=== PATIENT | female | born 1945 | race African-American/Black ===

== ENCOUNTER 2017-02-01 14:22 | Emergency (ER) | payer MEDICARE, MEDICAID ==
[~2017-02-01] VITALS: Ht 162.6 cm; Wt 94.0 kg
[~2017-02-01 14:22] MED LIST: AMLO2.5T45 PO; ASPI-1236 PO
[2017-02-01 16:09] LABS: EOSINOPHILS % 1.2 % (0.0-5.0); HEMATOCRIT. 41.9 % (36.0-48.0); HEMOGLOBIN. 13.7 g/dL (12.0-16.0); LYMPHOCYTES % 29.5 % (20.0-50.0); MEAN CORPUSCULAR HEMOGLOBIN 26.2 pg (28.0-32.0); MEAN CORPUSCULAR VOLUME 80.2 fL (81.0-99.0); MEAN PLATELET VOLUME 10.7 fl (7.4-10.4); MONOCYTES % 5.5 % (2.0-8.0); NEUTROPHILS % 62.8 % (40.0-76.0); PLATELET 165 x1000/uL (130-400); RED BLOOD CELL COUNT 5.22 mill/uL (4.2-5.4); RED CELL DISTRIBUTION WIDTH 16.6 % (11.6-14.6)
[2017-02-01 16:13] LABS: CHLORIDE 104 mEq/L (98-107)
[2017-02-01 16:19] LABS: CARBON DIOXIDE 29 mEq/L (21-32)
[2017-02-01 16:23] LABS: TROPONIN I < 0.02 ng/mL (0.00-0.04)
[2017-02-01 17:06] LABS: CLARITY URINE CLEAR (CLEAR); COLOR URINE YELLOW (YELLOW); GLUCOSE URINE 3+ (NEGATIVE); KETONES URINE NEGATIVE (NEGATIVE); LEUKOCYTE ESTERASE URINE NEGATIVE (NEGATIVE); NITRITE URINE NEGATIVE (NEGATIVE); OCCULT BLOOD URINE NEGATIVE (NEGATIVE); PROTEIN URINE 3+ (NEGATIVE); SPECIFIC GRAVITY URINE 1.041 (1.005-1.030); UROBILINOGEN URINE 0.2 E.U./dL (0.2-1.0)
[2017-02-01] MEDS ORDERED: CLONIDINE 0.2MG TABLET PO ONE (19:15)
[2017-02-01 19:17] VITALS: BP 185/88
== END 2017-02-01 19:17 | disposition home or self-care (01) ==
LOC: ER 14:22
DX: I10 Essential (primary) hypertension (principal); F41.9 Anxiety disorder, unspecified; R07.89 Other chest pain; R94.31 Abnormal electrocardiogram [ECG] [EKG]; R79.89 Other specified abnormal findings of blood chemistry; F32.9 Major depressive disorder, single episode, unspecified; E11.9 Type 2 diabetes mellitus without complications
CPT/HCPCS: 36415; 71010; 80053; 81001; 84484; 85025; 93005; 99285

== ENCOUNTER 2017-02-07 14:08 | Inpatient (IN) | payer MEDICARE, MEDICAID ==
[~2017-02-07] VITALS: Ht 162.6 cm; Wt 108.9 kg
[2017-02-07] MEDS ORDERED: ASPIRIN 81MG TABLET PO STA (17:45)
[2017-02-07] MEDS ORDERED: CLONIDINE 0.2MG TABLET PO ONE (17:45)
[2017-02-07 18:11] LABS: BASOPHILS % 0.8 % (0.0-2.0); EOSINOPHILS % 1.4 % (0.0-5.0); HEMATOCRIT. 40.7 % (36.0-48.0); HEMOGLOBIN. 13.3 g/dL (12.0-16.0); LYMPHOCYTES % 30.7 % (20.0-50.0); MEAN CORPUSCULAR HEMOGLOBIN 26.1 pg (28.0-32.0); MEAN PLATELET VOLUME 10.1 fl (7.4-10.4); MONOCYTES % 6.5 % (2.0-8.0); NEUTROPHILS % 60.6 % (40.0-76.0); PLATELET 149 x1000/uL (130-400); RED BLOOD CELL COUNT 5.09 mill/uL (4.2-5.4); RED CELL DISTRIBUTION WIDTH 16.5 % (11.6-14.6)
[2017-02-07 18:17] LABS: INR 1.2; PARTIAL THROMBOPLASTIN TIME 28.5 sec (23.4-31.0); PROTHROMBIN TIME 12.1 sec (9.4-11.6)
[2017-02-07 18:22] LABS: CARBON DIOXIDE 30 mEq/L (21-32); CHLORIDE 103 mEq/L (98-107)
[2017-02-07 18:25] LABS: TROPONIN I < 0.02 ng/mL (0.00-0.04)
[2017-02-07 20:55] VITALS: BP 148/66
[2017-02-07] MEDS ORDERED: LISI10TA5 PO (22:09)
[2017-02-07] MEDS ORDERED: METF500T7 PO (23:14)
[2017-02-08] VITALS: BP 140/67
[2017-02-08] MEDS ORDERED: CLONIDINE 0.1MG TABLET PO PRN (00:15)
[2017-02-08] MEDS ORDERED: MAGNESIUM/ALUMINUM HYDROXIDE/SIMETHICONE 30ML UDC PO PRN (00:15)
[2017-02-08] MEDS ORDERED: ACETAMINOPHEN 325MG TABLET PO PRN (00:15)
[2017-02-08] MEDS ORDERED: ZOLPIDEM TARTRATE 5MG TABLET PO PRN (00:15)
[2017-02-08] MEDS ORDERED: DEXTROSE 50% WATER 50ML SYRINGE IV PRN (00:15)
[2017-02-08 04:00] VITALS: BP 145/65
[2017-02-08 06:37] LABS: BASOPHILS % 0.9 % (0.0-2.0); EOSINOPHILS % 1.8 % (0.0-5.0); HEMATOCRIT. 37.6 % (36.0-48.0); HEMOGLOBIN. 12.3 g/dL (12.0-16.0); LYMPHOCYTES % 39.4 % (20.0-50.0); MEAN CORPUSCULAR VOLUME 79.8 fL (81.0-99.0); MEAN PLATELET VOLUME 10.4 fl (7.4-10.4); MONOCYTES % 7.6 % (2.0-8.0); NEUTROPHILS % 50.3 % (40.0-76.0); PLATELET 140 x1000/uL (130-400); RED BLOOD CELL COUNT 4.72 mill/uL (4.2-5.4); RED CELL DISTRIBUTION WIDTH 16.5 % (11.6-14.6)
[2017-02-08] MEDS: BLOOD SUGAR DIAGNOSTIC STRIP TEST SCH ×4 (07:20→21:00)
[2017-02-08 07:37] VITALS: BP 176/85
[2017-02-08] MEDS: METFORMIN HCL 500MG SR TABLET 24HR PO SCH (08:46)
[2017-02-08] MEDS: DOCUSATE SODIUM 100MG CAPSULE PO SCH (08:47)
[2017-02-08] MEDS: LISINOPRIL 10MG TABLET PO SCH (08:47)
[2017-02-08] MEDS: ASPIRIN 81MG TABLET PO SCH (08:48)
[2017-02-08] MEDS: AMLODIPINE 2.5MG TABLET PO SCH (08:48)
[2017-02-08] MEDS: INSULIN LISPRO 100 UNITS/ML SUBCUT SCH ×4 (08:49→22:19)
[2017-02-08] MEDS: ENOXAPARIN 40MG/0.4ML SYR SUBCUT SCH ×2 (08:50→22:16)
[2017-02-08] MEDS ORDERED: ENOXAPARIN 40MG/0.4ML SYR SUBCUT SCH (09:00)
[2017-02-08 11:32] VITALS: BP 146/65
[2017-02-08 16:43] VITALS: BP 138/68
[2017-02-08 20:00] VITALS: BP 140/52
[2017-02-09] VITALS: BP 142/53
[2017-02-09 04:00] VITALS: BP 150/53
[2017-02-09] MEDS: INSULIN LISPRO 100 UNITS/ML SUBCUT SCH ×4 (06:58→20:53)
[2017-02-09] MEDS: BLOOD SUGAR DIAGNOSTIC STRIP TEST SCH ×4 (06:58→20:52)
[2017-02-09 07:53] VITALS: BP 162/72
[2017-02-09] MEDS: METFORMIN HCL 500MG SR TABLET 24HR PO SCH (08:36)
[2017-02-09] MEDS: ASPIRIN 81MG TABLET PO SCH (08:37)
[2017-02-09] MEDS: AMLODIPINE 2.5MG TABLET PO SCH (08:37)
[2017-02-09] MEDS: LISINOPRIL 10MG TABLET PO SCH ×2 (08:37→16:10)
[2017-02-09] MEDS: ENOXAPARIN 40MG/0.4ML SYR SUBCUT SCH ×2 (08:38→20:52)
[2017-02-09] MEDS: DOCUSATE SODIUM 100MG CAPSULE PO SCH (08:42)
[2017-02-09] MEDS ORDERED: AMLODIPINE 2.5MG TABLET PO SCH (11:45)
[2017-02-09] MEDS ORDERED: AMLODIPINE 2.5MG TABLET PO ONE (11:45)
[2017-02-09 11:53] VITALS: BP 177/73
[2017-02-09] MEDS ORDERED: HYDRALAZINE 20MG/ML VIAL IV PRN (12:45)
[2017-02-09 15:04] VITALS: BP 171/70
[2017-02-09] MEDS: AMLODIPINE 5MG TABLET PO SCH (16:10)
[2017-02-09 20:00] VITALS: BP 165/65
[2017-02-10] VITALS: BP 152/70
[2017-02-10 04:00] VITALS: BP 158/72
[2017-02-10 06:23] LABS: BASOPHILS % 0.9 % (0.0-2.0); EOSINOPHILS % 1.4 % (0.0-5.0); HEMATOCRIT. 38.7 % (36.0-48.0); HEMOGLOBIN. 12.7 g/dL (12.0-16.0); LYMPHOCYTES % 40.5 % (20.0-50.0); MEAN CORPUSCULAR HEMOGLOBIN 26.1 pg (28.0-32.0); MEAN CORPUSCULAR VOLUME 79.6 fL (81.0-99.0); MEAN PLATELET VOLUME 10.8 fl (7.4-10.4); MONOCYTES % 7.8 % (2.0-8.0); NEUTROPHILS % 49.4 % (40.0-76.0); PLATELET 152 x1000/uL (130-400); RED BLOOD CELL COUNT 4.87 mill/uL (4.2-5.4); RED CELL DISTRIBUTION WIDTH 16.1 % (11.6-14.6)
[2017-02-10] MEDS: BLOOD SUGAR DIAGNOSTIC STRIP TEST SCH ×2 (07:20→12:20)
[2017-02-10] MEDS: INSULIN LISPRO 100 UNITS/ML SUBCUT SCH ×2 (08:12→12:47)
[2017-02-10] MEDS: METFORMIN HCL 500MG SR TABLET 24HR PO SCH (08:14)
[2017-02-10] MEDS: ASPIRIN 81MG TABLET PO SCH (08:14)
[2017-02-10] MEDS: AMLODIPINE 5MG TABLET PO SCH (08:15)
[2017-02-10] MEDS: DOCUSATE SODIUM 100MG CAPSULE PO SCH (08:15)
[2017-02-10] MEDS: LISINOPRIL 10MG TABLET PO SCH (08:15)
[2017-02-10] MEDS: ENOXAPARIN 40MG/0.4ML SYR SUBCUT SCH (08:16)
[2017-02-10] MEDS ORDERED: AMLODIPINE 5MG TABLET PO SCH (09:00)
[2017-02-10] MEDS ORDERED: NIFEDIPINE XL 60MG TAB PO SCH (11:30)
[2017-02-10 12:35] VITALS: BP 153/62
[2017-02-10 16:00] VITALS: BP 156/70
[2017-02-10 16:13] VITALS: BP 150/70
[2017-02-10 17:10] VITALS: BP 156/70
[2017-02-11] MEDS ORDERED: LOSARTAN POTASSIUM 50 MG TABLET PO SCH (09:00)
== END 2017-02-10 17:32 | disposition home or self-care (01) | DRG 305 ==
LOC: ER 14:08 → 6WST 19:08 → EDBEDREQ 19:09 → EDBEDREQTM 19:09 → ENRESERV 19:52 → EDBEDREQ 20:47
PROVIDERS: ADMIT Internal Medicine; ATTEND Internal Medicine
DX: I10 Essential (primary) hypertension (principal); R00.1 Bradycardia, unspecified; E11.9 Type 2 diabetes mellitus without complications; Z68.41 Body mass index [BMI] 40.0-44.9, adult; R51 Headache; E66.9 Obesity, unspecified; Z79.84 Long term (current) use of oral hypoglycemic drugs; Z79.899 Other long term (current) drug therapy; Z82.49 Family history of ischemic heart disease and other diseases of the circulatory system; Z79.82 Long term (current) use of aspirin
CPT/HCPCS: 36415; 71010; 73630; 80048; 80053; 80061; 82962; 83036; 83735; 84443; 84484; 85025; 85610; 85730; 93005; 93306; 93880; 97162; 97166; 99285; J0360; J1650; J1815

== ENCOUNTER → 2017-10-06 | Outpatient (CLI) | payer MEDICARE, MEDICAID ==
[~2017-10-06] MED LIST changes: -AMLO2.5T45 PO; +LOSA50TA20 PO; +METF500T7 PO; +NIFE30TA94 PO
== END | disposition home or self-care (01) ==
LOC: RAD 11:32
PROVIDERS: ATTEND Specialist
DX: Z12.31 Encounter for screening mammogram for malignant neoplasm of breast (principal)
CPT/HCPCS: 77067

== ENCOUNTER 2017-12-19 10:23 | Emergency (ER) | payer MEDICARE, MEDICAID ==
[~2017-12-19] VITALS: Ht 165.1 cm; Wt 92.0 kg
[2017-12-19] MEDS ORDERED: MECLIZINE 25MG TABLET PO ONE (11:45)
[2017-12-19] MEDS ORDERED: NIFEDIPINE XL 30MG TAB PO ONE (11:45)
[2017-12-19 12:19] LABS: BASOPHILS % 1.1 % (0.0-2.0); EOSINOPHILS % 0.4 % (0.0-5.0); HEMATOCRIT. 41.7 % (36.0-48.0); HEMOGLOBIN. 13.4 g/dL (12.0-16.0); MEAN CORPUSCULAR HEMOGLOBIN 26.1 pg (28.0-32.0); MEAN CORPUSCULAR VOLUME 81.3 fL (81.0-99.0); MEAN PLATELET VOLUME 10.4 fl (7.4-10.4); MONOCYTES % 5.5 % (2.0-8.0); PLATELET 160 x1000/uL (130-400); RED BLOOD CELL COUNT 5.12 mill/uL (4.2-5.4); RED CELL DISTRIBUTION WIDTH 16.1 % (11.6-14.6)
[2017-12-19 12:28] LABS: CHLORIDE 102 mEq/L (98-107)
[2017-12-19] MEDS ORDERED: LABETALOL HCL 100MG TABLET PO ONE (14:30)
[2017-12-19] MEDS ORDERED: LABETALOL HCL 20MG/4ML CARPUJECT IV ONE (14:30)
[2017-12-19] MEDS ORDERED: LISINOPRIL 20MG TABLET PO ONE (14:45)
[2017-12-19] MEDS ORDERED: ENALAPRIL 2.5MG/2ML VIAL 2ML IV ONE (14:45)
[2017-12-19 15:55] VITALS: BP 176/80
[2017-12-19] MEDS ORDERED: LISINOPRIL 20MG TABLET PO SCH (21:00)
== END 2017-12-19 15:55 | disposition home or self-care (01) ==
LOC: ER 10:23
DX: I16.0 Hypertensive urgency (principal); R42 Dizziness and giddiness; E11.9 Type 2 diabetes mellitus without complications; Z79.84 Long term (current) use of oral hypoglycemic drugs; Z79.899 Other long term (current) drug therapy
CPT/HCPCS: 36415; 80048; 84484; 85025; 96374; 99284; J3490; J8597

== ENCOUNTER 2019-07-21 07:36 | Inpatient (IN) | payer MEDICARE, MEDICAID ==
[~2019-07-21] VITALS: Ht 162.6 cm; Wt 93.9 kg
[~2019-07-21 07:36] MED LIST changes: -ASPI-1236 PO; +ASPI-1488 PO; -LOSA50TA20 PO; +LOSA50TA41 PO; +METF500T20 PO; -METF500T7 PO
[2019-07-21] MEDS ORDERED: ASPIRIN 81MG TABLET PO ONE (08:00)
[2019-07-21] MEDS ORDERED: SODIUM CHLORIDE 0.9% 1,000 ML IV ONE (08:15)
[2019-07-21] MEDS ORDERED: DILTIAZEM HCL 125 MG in DEXT 5% WATER 100 ML IV ONE (08:15)
[2019-07-21] MEDS ORDERED: DILTIAZEM HCL 5MG/ML 5ML VIAL IV ONE (08:15)
[2019-07-21 08:20] LABS: HEMATOCRIT. 40.9 % (36.0-48.0); HEMOGLOBIN. 13.3 g/dL (12.0-16.0); MEAN CORPUSCULAR HEMOGLOBIN 26.7 pg (28.0-32.0); MEAN CORPUSCULAR VOLUME 82.3 fL (81.0-99.0); MEAN PLATELET VOLUME 10.8 fl (7.4-10.4); PLATELET 190 x1000/uL (130-400); RED BLOOD CELL COUNT 4.97 mill/uL (4.2-5.4); RED CELL DISTRIBUTION WIDTH 15.5 % (11.6-14.6)
[2019-07-21 08:26] LABS: INR 1.1; PARTIAL THROMBOPLASTIN TIME 27.6 sec (23.4-31.0)
[2019-07-21] MEDS ORDERED: ENOXAPARIN 80MG/0.8ML SYR SUBCUT ONE (08:30)
[2019-07-21 08:32] LABS: CHLORIDE 97 mEq/L (98-107)
[2019-07-21] MEDS: ASPIRIN 81MG TABLET PO NR ×2 (09:00→09:02)
[2019-07-21 09:41] LABS: PLATELET ESTIMATE NORMAL
[2019-07-21 12:24] LABS: CLARITY URINE CLEAR (CLEAR); COLOR URINE YELLOW (YELLOW); KETONES URINE NEGATIVE (NEGATIVE); LEUKOCYTE ESTERASE URINE NEGATIVE (NEGATIVE); NITRITE URINE NEGATIVE (NEGATIVE); OCCULT BLOOD URINE 1+ (NEGATIVE); PROTEIN URINE 4+ (NEGATIVE); SPECIFIC GRAVITY URINE 1.014 (1.005-1.030); UROBILINOGEN URINE 0.2 E.U./dL (0.2-1.0)
[2019-07-21] MEDS: BLOOD SUGAR DIAGNOSTIC STRIP TEST SCH ×3 (15:12→20:37)
[2019-07-21] MEDS ORDERED: DEXTROSE 50% WATER 50ML SYRINGE IV PRN (15:15)
[2019-07-21] MEDS: DILTIAZEM HCL 60MG TABLET PO SCH ×2 (15:35→18:25)
[2019-07-21] MEDS ORDERED: DILTIAZEM HCL 5MG/ML 5ML VIAL IV PRN (16:45)
[2019-07-21] MEDS ORDERED: CLONIDINE 0.1MG TABLET PO PRN (17:00)
[2019-07-21] MEDS: INSULIN LISPRO (MEDIUM DOSE) 100 UNITS/ML SUBCUT SCH ×3 (18:20→21:16)
[2019-07-21 20:00] VITALS: BP 135/69
[2019-07-21] MEDS: LOSARTAN POTASSIUM 25 MG TABLET PO SCH (20:37)
[2019-07-21] MEDS: ENOXAPARIN 80MG/0.8ML SYR SUBCUT SCH (21:17)
[2019-07-21] MEDS: NITROGLYCERIN OINT 1GM/INCH UDPKT TD SCH (21:56)
[2019-07-22] VITALS: BP 153/95
[2019-07-22] MEDS: DILTIAZEM HCL 60MG TABLET PO SCH ×4 (00:19→18:36)
[2019-07-22] MEDS ORDERED: HYDROCODONE/ACETAMINOPHEN 5/325MG TABLET PO PRN (00:30)
[2019-07-22] MEDS: MORPHINE SULFATE 2 MG/ML CPJ (NOT FOR IM USE) IV PRN ×2 (00:38→06:47)
[2019-07-22 04:00] VITALS: BP 133/79
[2019-07-22] MEDS: NITROGLYCERIN OINT 1GM/INCH UDPKT TD SCH ×4 (04:08→22:48)
[2019-07-22] MEDS: BLOOD SUGAR DIAGNOSTIC STRIP TEST SCH ×4 (07:40→20:27)
[2019-07-22 08:00] VITALS: BP 95/52
[2019-07-22] MEDS: LOSARTAN POTASSIUM 25 MG TABLET PO SCH ×2 (09:00→20:23)
[2019-07-22] MEDS: ASPIRIN 325MG EC TABLET PO SCH (09:16)
[2019-07-22] MEDS: ENOXAPARIN 80MG/0.8ML SYR SUBCUT SCH ×2 (09:17→20:27)
[2019-07-22] MEDS: INSULIN LISPRO (MEDIUM DOSE) 100 UNITS/ML SUBCUT SCH ×2 (09:25→14:00)
[2019-07-22 09:59] LABS: BASOPHILS % 0.5 % (0.0-2.0); EOSINOPHILS % 0.8 % (0.0-5.0); HEMATOCRIT. 34.9 % (36.0-48.0); HEMOGLOBIN. 11.6 g/dL (12.0-16.0); LYMPHOCYTES % 20.8 % (20.0-50.0); MEAN CORPUSCULAR VOLUME 80.9 fL (81.0-99.0); MEAN PLATELET VOLUME 11.7 fl (7.4-10.4); NEUTROPHILS % 68.9 % (40.0-76.0); PLATELET 156 x1000/uL (130-400); RED BLOOD CELL COUNT 4.31 mill/uL (4.2-5.4); RED CELL DISTRIBUTION WIDTH 15.9 % (11.6-14.6)
[2019-07-22 10:14] LABS: CHLORIDE 100 mEq/L (98-107)
[2019-07-22 10:20] LABS: CREATINE KINASE 67 IU/L (26-192); CREATINE KINASE MB FRACTION < 1.0 ng/mL (0.5-3.6); HDL CHOLESTEROL 52 mg/dL (40-59); LDL CHOLESTEROL 70 mg/dL (5-100)
[2019-07-22] MEDS ORDERED: REGADENOSON 0.4 MG/5 ML IV NR (11:15)
[2019-07-22 12:00] VITALS: BP 122/74
[2019-07-22] MEDS ORDERED: DEXTROSE 50% WATER 50ML SYRINGE IV PRN (14:15)
[2019-07-22 16:00] VITALS: BP 136/72
[2019-07-22] MEDS: INSULIN LISPRO 100 UNITS/ML SUBCUT SCH ×2 (18:38→20:34)
[2019-07-23 00:14] VITALS: BP 134/66
[2019-07-23] MEDS: DILTIAZEM HCL 60MG TABLET PO SCH ×3 (00:28→13:55)
[2019-07-23 04:00] VITALS: BP 130/58
[2019-07-23] MEDS: NITROGLYCERIN OINT 1GM/INCH UDPKT TD SCH ×2 (04:45→09:53)
[2019-07-23] MEDS: BLOOD SUGAR DIAGNOSTIC STRIP TEST SCH ×2 (06:08→13:32)
[2019-07-23] MEDS: INSULIN LISPRO 100 UNITS/ML SUBCUT SCH ×2 (06:08→13:10)
[2019-07-23 06:45] LABS: BASOPHILS % 0.6 % (0.0-2.0); EOSINOPHILS % 1.5 % (0.0-5.0); HEMATOCRIT. 34.3 % (36.0-48.0); HEMOGLOBIN. 11.2 g/dL (12.0-16.0); LYMPHOCYTES % 25.7 % (20.0-50.0); MEAN CORPUSCULAR HEMOGLOBIN 26.7 pg (28.0-32.0); MEAN CORPUSCULAR VOLUME 81.7 fL (81.0-99.0); MEAN PLATELET VOLUME 10.8 fl (7.4-10.4); MONOCYTES % 9.8 % (2.0-8.0); NEUTROPHILS % 62.4 % (40.0-76.0); PLATELET 147 x1000/uL (130-400); RED BLOOD CELL COUNT 4.19 mill/uL (4.2-5.4)
[2019-07-23 06:57] LABS: CHLORIDE 99 mEq/L (98-107)
[2019-07-23 07:09] LABS: CREATINE KINASE 62 IU/L (26-192)
[2019-07-23 07:12] LABS: CREATINE KINASE MB FRACTION < 1.0 ng/mL (0.5-3.6)
[2019-07-23 08:00] VITALS: BP 147/74
[2019-07-23] MEDS: LOSARTAN POTASSIUM 25 MG TABLET PO SCH (09:49)
[2019-07-23] MEDS: ASPIRIN 325MG EC TABLET PO SCH (09:49)
[2019-07-23] MEDS: ENOXAPARIN 80MG/0.8ML SYR SUBCUT SCH (09:50)
[2019-07-23] MEDS ORDERED: DEXTROSE 50% WATER 50ML SYRINGE IV PRN (10:45)
[2019-07-23] MEDS ORDERED: BLOOD SUGAR DIAGNOSTIC STRIP TEST SCH (12:40)
[2019-07-23] MEDS ORDERED: INSULIN LISPRO 100 UNITS/ML SUBCUT SCH (13:10)
[2019-07-23 14:09] VITALS: BP 148/79
[2019-07-23 16:37] VITALS: BP 130/58
[2019-07-23] MEDS ORDERED: APIXABAN 5 MG TABLET PO SCH (17:00)
[2019-07-30] MEDS ORDERED: ACET-2708 PO (22:24)
== END 2019-07-23 17:33 | disposition home health service (06) | DRG 309 ==
LOC: ER 08:08 → 7WST 09:31 → ENRESERV 16:47
PROVIDERS: ADMIT Specialist; ATTEND Specialist
DX: I48.91 Unspecified atrial fibrillation (principal); N17.9 Acute kidney failure, unspecified; E87.1 Hypo-osmolality and hyponatremia; E11.9 Type 2 diabetes mellitus without complications; I10 Essential (primary) hypertension; R07.9 Chest pain, unspecified; E78.5 Hyperlipidemia, unspecified; I25.10 Atherosclerotic heart disease of native coronary artery without angina pectoris; D64.9 Anemia, unspecified; Z79.82 Long term (current) use of aspirin; Z79.84 Long term (current) use of oral hypoglycemic drugs; Z79.899 Other long term (current) drug therapy; Z79.01 Long term (current) use of anticoagulants; Z79.4 Long term (current) use of insulin
CPT/HCPCS: 36415; 71045; 78452; 80053; 80061; 81003; 82550; 82553; 82962; 83036; 83735; 83880; 84443; 84484; 85025; 85379; 93005; 93017; 93306; 93970; 99285; A9500; J1650; J1815; J2270; J3490; J7030; J7060

== ENCOUNTER 2019-09-17 13:30 | Inpatient (IN) | payer MEDICARE, MEDICAID ==
[~2019-09-17] VITALS: Ht 165.1 cm; Wt 96.6 kg
[~2019-09-17 13:30] MED LIST changes: +ACET-2708 PO
[2019-09-17] MEDS ORDERED: DILTIAZEM HCL 60MG TABLET PO ONE (14:30)
[2019-09-17] MEDS ORDERED: DILTIAZEM HCL 5MG/ML 5ML VIAL IV ONE (14:30)
[2019-09-17 14:34] LABS: CHLORIDE 105 mEq/L (98-107)
[2019-09-17 14:36] LABS: BASOPHILS % 0.7 % (0.0-2.0); HEMATOCRIT. 38.2 % (36.0-48.0); HEMOGLOBIN. 12.7 g/dL (12.0-16.0); LYMPHOCYTES % 31.2 % (20.0-50.0); MEAN CORPUSCULAR HEMOGLOBIN 26.6 pg (28.0-32.0); MEAN CORPUSCULAR VOLUME 80.2 fL (81.0-99.0); MEAN PLATELET VOLUME 10.8 fl (7.4-10.4); MONOCYTES % 4.5 % (2.0-8.0); NEUTROPHILS % 62.6 % (40.0-76.0); PLATELET 195 x1000/uL (130-400); RED BLOOD CELL COUNT 4.77 mill/uL (4.2-5.4); RED CELL DISTRIBUTION WIDTH 16.6 % (11.6-14.6)
[2019-09-17 14:42] LABS: INR 1.2; PARTIAL THROMBOPLASTIN TIME 34.5 sec (23.4-31.0); PROTHROMBIN TIME 13.2 sec (9.6-11.0)
[2019-09-17] MEDS: ASPIRIN 81MG TABLET PO SCH (16:16)
[2019-09-17] MEDS: LOSARTAN POTASSIUM 25 MG TABLET PO SCH (16:16)
[2019-09-17] MEDS: APIXABAN 5 MG TABLET PO SCH (16:30)
[2019-09-17] MEDS ORDERED: TRAMADOL 50MG TABLET PO PRN (17:45)
[2019-09-17] MEDS ORDERED: ONDANSETRON HCL 4MG/2ML INJ IV PRN (17:45)
[2019-09-17] MEDS ORDERED: DEXTROSE 50% WATER 50ML SYRINGE IV PRN (17:45)
[2019-09-17] MEDS ORDERED: MAGNESIUM/ALUMINUM HYDROXIDE/SIMETHICONE 30ML UDC PO PRN (17:45)
[2019-09-17] MEDS ORDERED: DOCUSATE SODIUM 100MG CAPSULE PO PRN (17:45)
[2019-09-17] MEDS ORDERED: ACETAMINOPHEN 325MG TABLET PO PRN ×2 (17:45)
[2019-09-17] MEDS ORDERED: LOSARTAN POTASSIUM 100 MG TABLET PO SCH (17:45)
[2019-09-17] MEDS ORDERED: NITROGLYCERIN 0.4MG TABLET SL SL PRN (17:45)
[2019-09-17] MEDS ORDERED: MORPHINE SULFATE 2 MG/ML CPJ (NOT FOR IM USE) IV PRN (17:45)
[2019-09-17] MEDS ORDERED: GUAIFENESIN 200MG/10ML SUGAR FREE UDC PO PRN (17:45)
[2019-09-17] MEDS ORDERED: ZOLPIDEM TARTRATE 5MG TABLET PO PRN (17:45)
[2019-09-17] MEDS ORDERED: DILTIAZEM HCL 60MG TABLET PO SCH (18:00)
[2019-09-17 18:16] LABS: *AMPHETAMINES SCREEN URINE NEGATIVE (NEGATIVE); *BARBITURATES SCREEN URINE NEGATIVE (NEGATIVE); *BENZODIAZEPINES SCREEN URINE NEGATIVE (NEGATIVE)
[2019-09-17 18:18] LABS: *COCAINE SCREEN URINE NEGATIVE (NEGATIVE); CANNABINOID URINE SCREEN NEGATIVE (NEGATIVE); METHADONE URINE SCREEN NEGATIVE (NEGATIVE); OPIATES URINE SCREEN NEGATIVE (NEGATIVE); PHENCYCLIDINE URINE SCREEN NEGATIVE (NEGATIVE)
[2019-09-17 22:58] VITALS: BP 161/97
[2019-09-17] MEDS ORDERED: FAMOTIDINE 20MG TABLET PO SCH (23:00)
[2019-09-17] MEDS: DILTIAZEM HCL 60MG TABLET PO SCH (23:17)
[2019-09-17] MEDS: ASCORBIC ACID 500 MG TABLET PO SCH (23:17)
[2019-09-17] MEDS: CLONIDINE 0.1MG TABLET PO PRN (23:18)
[2019-09-17] MEDS: INSULIN LISPRO 100 UNITS/ML SUBCUT SCH (23:18)
[2019-09-17] MEDS: BLOOD SUGAR DIAGNOSTIC STRIP TEST SCH (23:19)
[2019-09-18] VITALS (12 sets, daily range): BP systolic 110–180; BP diastolic 65–94
[2019-09-18 01:55] LABS: CREATINE KINASE 89 IU/L (26-192); CREATINE KINASE MB FRACTION < 1.0 ng/mL (0.5-3.6)
[2019-09-18] MEDS: DILTIAZEM HCL 60MG TABLET PO SCH ×3 (05:28→16:53)
[2019-09-18] MEDS: BLOOD SUGAR DIAGNOSTIC STRIP TEST SCH ×4 (05:28→20:58)
[2019-09-18 07:34] LABS: BASOPHILS % 0.7 % (0.0-2.0); EOSINOPHILS % 0.9 % (0.0-5.0); HEMATOCRIT. 38.2 % (36.0-48.0); HEMOGLOBIN. 12.8 g/dL (12.0-16.0); LYMPHOCYTES % 23.8 % (20.0-50.0); MEAN CORPUSCULAR HEMOGLOBIN 26.9 pg (28.0-32.0); MEAN CORPUSCULAR VOLUME 80.5 fL (81.0-99.0); MEAN PLATELET VOLUME 10.9 fl (7.4-10.4); MONOCYTES % 5.9 % (2.0-8.0); NEUTROPHILS % 68.7 % (40.0-76.0); PLATELET 165 x1000/uL (130-400); RED BLOOD CELL COUNT 4.75 mill/uL (4.2-5.4); RED CELL DISTRIBUTION WIDTH 16.3 % (11.6-14.6)
[2019-09-18 08:00] LABS: CHLORIDE 105 mEq/L (98-107)
[2019-09-18 08:13] LABS: CREATINE KINASE 83 IU/L (26-192)
[2019-09-18 08:14] LABS: PHOSPHORUS 3.1 mg/dL (2.5-4.9)
[2019-09-18 08:20] LABS: CREATINE KINASE MB FRACTION < 1.0 ng/mL (0.5-3.6)
[2019-09-18] MEDS: INSULIN LISPRO 100 UNITS/ML SUBCUT SCH ×4 (09:31→20:54)
[2019-09-18] MEDS: LOSARTAN POTASSIUM 25 MG TABLET PO SCH (09:34)
[2019-09-18] MEDS: ASCORBIC ACID 500 MG TABLET PO SCH ×2 (09:34→20:54)
[2019-09-18] MEDS: GABAPENTIN 100MG CAPSULE PO SCH ×3 (09:34→20:54)
[2019-09-18] MEDS: ZINC SULFATE 220 MG ( 50 ) CAPSULE PO SCH (09:34)
[2019-09-18] MEDS: FAMOTIDINE 20MG TABLET PO SCH (09:35)
[2019-09-18] MEDS: APIXABAN 5 MG TABLET PO SCH ×2 (09:35→16:53)
[2019-09-18] MEDS: ASPIRIN 81MG TABLET PO SCH (09:35)
[2019-09-18] MEDS: IPRATROPIUM/ALBUTEROL 0.5-3(2.5)MG/3ML NEB ORI PRN (20:33)
[2019-09-18] MEDS: CLONIDINE 0.1MG TABLET PO PRN (21:31)
[2019-09-19] VITALS (13 sets, daily range): BP systolic 105–171; BP diastolic 55–94
[2019-09-19] MEDS: DILTIAZEM HCL 60MG TABLET PO SCH ×4 (00:27→18:17)
[2019-09-19] MEDS: GABAPENTIN 100MG CAPSULE PO SCH ×3 (05:08→22:12)
[2019-09-19] MEDS: BLOOD SUGAR DIAGNOSTIC STRIP TEST SCH ×4 (05:09→21:52)
[2019-09-19 06:54] LABS: BASOPHILS % 0.7 % (0.0-2.0); EOSINOPHILS % 0.8 % (0.0-5.0); HEMATOCRIT. 32.6 % (36.0-48.0); HEMOGLOBIN. 10.7 g/dL (12.0-16.0); LYMPHOCYTES % 27.5 % (20.0-50.0); MEAN CORPUSCULAR HEMOGLOBIN 26.5 pg (28.0-32.0); MEAN CORPUSCULAR VOLUME 80.6 fL (81.0-99.0); MEAN PLATELET VOLUME 10.3 fl (7.4-10.4); MONOCYTES % 5.8 % (2.0-8.0); NEUTROPHILS % 65.2 % (40.0-76.0); PLATELET 142 x1000/uL (130-400); RED BLOOD CELL COUNT 4.05 mill/uL (4.2-5.4); RED CELL DISTRIBUTION WIDTH 16.6 % (11.6-14.6)
[2019-09-19] MEDS: INSULIN LISPRO 100 UNITS/ML SUBCUT SCH ×4 (09:40→22:11)
[2019-09-19] MEDS: LOSARTAN POTASSIUM 25 MG TABLET PO SCH (09:41)
[2019-09-19] MEDS: ASPIRIN 81MG TABLET PO SCH (09:41)
[2019-09-19] MEDS: FAMOTIDINE 20MG TABLET PO SCH (09:41)
[2019-09-19] MEDS: APIXABAN 5 MG TABLET PO SCH ×2 (09:41→18:17)
[2019-09-19] MEDS: ZINC SULFATE 220 MG ( 50 ) CAPSULE PO SCH (09:41)
[2019-09-19] MEDS: ASCORBIC ACID 500 MG TABLET PO SCH ×2 (09:41→22:11)
[2019-09-19] MEDS: IPRATROPIUM/ALBUTEROL 0.5-3(2.5)MG/3ML NEB ORI PRN (22:20)
[2019-09-20] VITALS (8 sets, daily range): BP systolic 129–160; BP diastolic 74–97
[2019-09-20] MEDS: DILTIAZEM HCL 60MG TABLET PO SCH ×3 (00:52→12:02)
[2019-09-20] MEDS ORDERED: GABA300C MT (06:21)
[2019-09-20] MEDS ORDERED: DILT240C91 MT (06:21)
[2019-09-20] MEDS ORDERED: APIX5TAB PO (06:23)
[2019-09-20] MEDS ORDERED: FAMO20TA8 PO (06:23)
[2019-09-20] MEDS ORDERED: ZINC220C2 PO (06:23)
[2019-09-20] MEDS ORDERED: ASCO500T20 PO (06:23)
[2019-09-20] MEDS ORDERED: ATOR10TA MT (06:24)
[2019-09-20] MEDS: BLOOD SUGAR DIAGNOSTIC STRIP TEST SCH ×2 (06:40→11:48)
[2019-09-20] MEDS: GABAPENTIN 100MG CAPSULE PO SCH ×2 (06:42→13:50)
[2019-09-20 06:51] LABS: BASOPHILS % 0.5 % (0.0-2.0); HEMATOCRIT. 35.4 % (36.0-48.0); HEMOGLOBIN. 11.5 g/dL (12.0-16.0); LYMPHOCYTES % 28.4 % (20.0-50.0); MEAN CORPUSCULAR HEMOGLOBIN 26.6 pg (28.0-32.0); MEAN CORPUSCULAR VOLUME 81.9 fL (81.0-99.0); MEAN PLATELET VOLUME 10.3 fl (7.4-10.4); MONOCYTES % 5.4 % (2.0-8.0); NEUTROPHILS % 64.7 % (40.0-76.0); PLATELET 163 x1000/uL (130-400); RED BLOOD CELL COUNT 4.32 mill/uL (4.2-5.4); RED CELL DISTRIBUTION WIDTH 16.8 % (11.6-14.6)
[2019-09-20] MEDS: FAMOTIDINE 20MG TABLET PO SCH (08:20)
[2019-09-20] MEDS: LOSARTAN POTASSIUM 25 MG TABLET PO SCH (08:20)
[2019-09-20] MEDS: ASCORBIC ACID 500 MG TABLET PO SCH (08:20)
[2019-09-20] MEDS: APIXABAN 5 MG TABLET PO SCH (08:20)
[2019-09-20] MEDS: ZINC SULFATE 220 MG ( 50 ) CAPSULE PO SCH (08:20)
[2019-09-20] MEDS: INSULIN LISPRO 100 UNITS/ML SUBCUT SCH ×2 (08:21→12:02)
[2019-09-20] MEDS: ASPIRIN 81MG TABLET PO SCH (08:36)
[2019-09-20] MEDS ORDERED: FUROSEMIDE 40MG/4ML VIAL IVP SCH (12:30)
[2019-09-20] MEDS ORDERED: ENOXAPARIN 80MG/0.8ML SYR SUBCUT SCH (21:00)
== END 2019-09-20 15:20 | disposition home health service (06) | DRG 309 ==
LOC: ER 13:30 → 3WST 17:04 → EDBEDREQTM 17:12 → EDBEDREQ 17:12 → SUPCPDRO 17:40 → ENRESERV 21:24
PROVIDERS: ADMIT Internal Medicine; ATTEND Internal Medicine
DX: I48.20 Chronic atrial fibrillation, unspecified (principal); E44.1 Mild protein-calorie malnutrition; I10 Essential (primary) hypertension; I27.81 Cor pulmonale (chronic); I27.21 Secondary pulmonary arterial hypertension; I34.0 Nonrheumatic mitral (valve) insufficiency; I25.10 Atherosclerotic heart disease of native coronary artery without angina pectoris; R79.89 Other specified abnormal findings of blood chemistry; M19.90 Unspecified osteoarthritis, unspecified site; E66.9 Obesity, unspecified; R91.8 Other nonspecific abnormal finding of lung field; E78.00 Pure hypercholesterolemia, unspecified; E11.42 Type 2 diabetes mellitus with diabetic polyneuropathy; Z79.01 Long term (current) use of anticoagulants; Z86.73 Personal history of transient ischemic attack (TIA), and cerebral infarction without residual deficits; Z91.14 Patient's other noncompliance with medication regimen; Z79.1 Long term (current) use of non-steroidal anti-inflammatories (NSAID); Z79.82 Long term (current) use of aspirin; Z79.84 Long term (current) use of oral hypoglycemic drugs; Z79.899 Other long term (current) drug therapy; Z68.35 Body mass index [BMI] 35.0-35.9, adult
CPT/HCPCS: 36415; 71045; 71046; 80048; 80053; 80061; 80305; 82550; 82553; 82962; 83036; 83735; 83880; 84100; 84484; 85025; 93005; 93306; 93970; 93971; 97162; 97166; 99291; J1815; J1940; J3490

== ENCOUNTER 2020-07-13 22:21 | Inpatient (IN) | payer BC, MEDICAID ==
[~2020-07-13] VITALS: Ht 172.7 cm; Wt 78.5 kg
[~2020-07-13 22:21] MED LIST changes: +APIX5TAB PO; +ASCO500T20 PO; +ATOR10TA MT; +DILT240C91 MT; +FAMO20TA8 PO; +GABA300C MT; -METF500T20 PO; +ZINC220C2 PO; +[UNRECOGNIZED DRUG - CODE] PO
[2020-07-13] MEDS ORDERED: SODIUM CHLORIDE 0.9% 1,000 ML IV ONE (23:45)
[2020-07-14 00:30] LABS: BASOPHILS % 0.5 % (0.0-2.0); EOSINOPHILS % 0.3 % (0.0-5.0); HEMATOCRIT. 40.4 % (36.0-48.0); HEMOGLOBIN. 13.4 g/dL (12.0-16.0); LYMPHOCYTES % 29.5 % (20.0-50.0); MEAN CORPUSCULAR HEMOGLOBIN 26.4 pg (28.0-32.0); MEAN CORPUSCULAR VOLUME 79.4 fL (81.0-99.0); MEAN PLATELET VOLUME 10.5 fl (7.4-10.4); MONOCYTES % 6.4 % (2.0-8.0); NEUTROPHILS % 63.3 % (40.0-76.0); PLATELET 176 x1000/uL (130-400); RED BLOOD CELL COUNT 5.09 mill/uL (4.2-5.4)
[2020-07-14 00:38] LABS: CHLORIDE 84 mEq/L (98-107)
[2020-07-14 02:16] LABS: CLARITY URINE CLEAR (CLEAR); COLOR URINE YELLOW (YELLOW); KETONES URINE NEGATIVE (NEGATIVE); LEUKOCYTE ESTERASE URINE 1+ (NEGATIVE); NITRITE URINE NEGATIVE (NEGATIVE); OCCULT BLOOD URINE NEGATIVE (NEGATIVE); PROTEIN URINE NEGATIVE (NEGATIVE); SPECIFIC GRAVITY URINE 1.004 (1.005-1.030); UROBILINOGEN URINE 0.2 E.U./dL (0.2-1.0)
[2020-07-14] MEDS ORDERED: ONDANSETRON HCL 4MG/2ML INJ IV PRN (09:15)
[2020-07-14] MEDS ORDERED: ACETAMINOPHEN 325MG TABLET PO PRN (09:15)
[2020-07-14] MEDS ORDERED: DEXTROSE 50% WATER 50ML SYRINGE IV PRN (09:15)
[2020-07-14] MEDS: ENOXAPARIN 80MG/0.8ML SYR SUBCUT SCH (11:22)
[2020-07-14] MEDS: SODIUM CHLORIDE 0.9% 1,000 ML IV SCH (11:23)
[2020-07-14 11:40] VITALS: BP 155/77
[2020-07-14 12:06] VITALS: BP 155/77
[2020-07-14] MEDS: BLOOD SUGAR DIAGNOSTIC STRIP TEST SCH ×3 (13:05→21:27)
[2020-07-14] MEDS: DILTIAZEM HCL 30MG TABLET PO SCH ×2 (13:45→18:00)
[2020-07-14] MEDS: INSULIN LISPRO 100 UNITS/ML SUBCUT SCH ×3 (13:46→21:00)
[2020-07-14] MEDS ORDERED: INFLUENZA VACCINE 05/PF 0.5 ML VIAL IM ONE (16:00)
[2020-07-14 16:12] VITALS: BP 126/67
[2020-07-14 20:00] VITALS: BP 134/68
[2020-07-14] MEDS: ATORVASTATIN CALCIUM 20MG TABLET PO SCH (21:26)
[2020-07-15] VITALS (7 sets, daily range): BP systolic 111–176; BP diastolic 43–86
[2020-07-15] MEDS: SODIUM CHLORIDE 0.9% 1,000 ML IV SCH ×2 (00:34→13:12)
[2020-07-15] MEDS: DILTIAZEM HCL 30MG TABLET PO SCH ×2 (06:00)
[2020-07-15] MEDS: BLOOD SUGAR DIAGNOSTIC STRIP TEST SCH ×4 (06:03→21:12)
[2020-07-15 07:01] LABS: BASOPHILS % 1.1 % (0.0-2.0); EOSINOPHILS % 0.7 % (0.0-5.0); HEMOGLOBIN. 13.6 g/dL (12.0-16.0); LYMPHOCYTES % 38.5 % (20.0-50.0); MEAN CORPUSCULAR HEMOGLOBIN 26.9 pg (28.0-32.0); MEAN CORPUSCULAR VOLUME 81.1 fL (81.0-99.0); MEAN PLATELET VOLUME 10.3 fl (7.4-10.4); MONOCYTES % 8.6 % (2.0-8.0); NEUTROPHILS % 51.1 % (40.0-76.0); PLATELET 164 x1000/uL (130-400); RED BLOOD CELL COUNT 5.06 mill/uL (4.2-5.4); RED CELL DISTRIBUTION WIDTH 15.4 % (11.6-14.6)
[2020-07-15 07:27] LABS: PHOSPHORUS 3.1 mg/dL (2.5-4.9)
[2020-07-15] MEDS: INSULIN LISPRO 100 UNITS/ML SUBCUT SCH ×4 (07:50→21:00)
[2020-07-15] MEDS: ENOXAPARIN 80MG/0.8ML SYR SUBCUT SCH (09:40)
[2020-07-15] MEDS: ATORVASTATIN CALCIUM 20MG TABLET PO SCH (21:12)
[2020-07-16] VITALS: BP 140/66
[2020-07-16] MEDS: SODIUM CHLORIDE 0.9% 1,000 ML IV SCH (01:59)
[2020-07-16 04:00] VITALS: BP 161/78
[2020-07-16] MEDS: BLOOD SUGAR DIAGNOSTIC STRIP TEST SCH ×5 (06:11→21:19)
[2020-07-16 07:12] LABS: INR 1.2; PROTHROMBIN TIME 12.4 sec (9.6-11.0)
[2020-07-16] MEDS: INSULIN LISPRO 100 UNITS/ML SUBCUT SCH ×4 (07:21→21:00)
[2020-07-16 07:22] LABS: BASOPHILS % 1.3 % (0.0-2.0); EOSINOPHILS % 0.9 % (0.0-5.0); HEMATOCRIT. 38.4 % (36.0-48.0); HEMOGLOBIN. 12.8 g/dL (12.0-16.0); LYMPHOCYTES % 29.4 % (20.0-50.0); MEAN CORPUSCULAR HEMOGLOBIN 26.9 pg (28.0-32.0); MEAN CORPUSCULAR VOLUME 80.7 fL (81.0-99.0); MONOCYTES % 6.7 % (2.0-8.0); NEUTROPHILS % 61.7 % (40.0-76.0); PLATELET 162 x1000/uL (130-400); RED BLOOD CELL COUNT 4.76 mill/uL (4.2-5.4); RED CELL DISTRIBUTION WIDTH 15.8 % (11.6-14.6)
[2020-07-16] MEDS: ENOXAPARIN 80MG/0.8ML SYR SUBCUT SCH ×2 (07:56→21:18)
[2020-07-16 08:00] VITALS: BP 143/68
[2020-07-16 08:38] LABS: PHOSPHORUS 2.9 mg/dL (2.5-4.9)
[2020-07-16] MEDS ORDERED: MECLIZINE 12.5MG TABLET PO PRN (10:15)
[2020-07-16] MEDS: LOSARTAN POTASSIUM 25 MG TABLET PO SCH (11:02)
[2020-07-16] MEDS: MAGNESIUM GLUCONATE 500MG TABLET PO SCH (11:02)
[2020-07-16 12:00] VITALS: BP 149/88
[2020-07-16] MEDS ORDERED: MECLIZINE 25MG TABLET PO PRN (13:00)
[2020-07-16 16:00] VITALS: BP 152/83
[2020-07-16 20:00] VITALS: BP 130/80
[2020-07-16] MEDS: ATORVASTATIN CALCIUM 20MG TABLET PO SCH (21:18)
[2020-07-17] VITALS (7 sets, daily range): BP systolic 107–167; BP diastolic 70–91
[2020-07-17] MEDS: BLOOD SUGAR DIAGNOSTIC STRIP TEST SCH ×3 (06:29→17:46)
[2020-07-17 07:17] LABS: BASOPHILS % 0.7 % (0.0-2.0); EOSINOPHILS % 0.5 % (0.0-5.0); HEMATOCRIT. 38.9 % (36.0-48.0); LYMPHOCYTES % 22.9 % (20.0-50.0); MEAN CORPUSCULAR HEMOGLOBIN 27.3 pg (28.0-32.0); MEAN CORPUSCULAR VOLUME 81.5 fL (81.0-99.0); MEAN PLATELET VOLUME 10.9 fl (7.4-10.4); MONOCYTES % 6.4 % (2.0-8.0); NEUTROPHILS % 69.5 % (40.0-76.0); PLATELET 176 x1000/uL (130-400); RED BLOOD CELL COUNT 4.77 mill/uL (4.2-5.4)
[2020-07-17 07:29] LABS: PHOSPHORUS 2.7 mg/dL (2.5-4.9)
[2020-07-17] MEDS: INSULIN LISPRO 100 UNITS/ML SUBCUT SCH ×3 (07:50→17:46)
[2020-07-17] MEDS: LOSARTAN POTASSIUM 25 MG TABLET PO SCH (08:51)
[2020-07-17] MEDS: MAGNESIUM GLUCONATE 500MG TABLET PO SCH (08:51)
[2020-07-17] MEDS: ENOXAPARIN 80MG/0.8ML SYR SUBCUT SCH (08:52)
[2020-07-17] MEDS ORDERED: MAGNESIUM 2 G PREMIX 50 ML IV SCH (11:00)
[2020-07-18] MEDS ORDERED: LOSARTAN POTASSIUM 50 MG TABLET PO SCH (09:00)
== END 2020-07-17 19:50 | disposition home health service (06) | DRG 640 ==
LOC: ER 22:21 → 6WST 07-14 03:11 → EDBEDREQTM 07-14 03:15 → EDBEDREQ 07-14 03:15 → ENRESERV 07-14 08:18
PROVIDERS: ADMIT Internal Medicine; ATTEND Internal Medicine
DX: E87.1 Hypo-osmolality and hyponatremia (principal); N17.0 Acute kidney failure with tubular necrosis; I13.0 Hypertensive heart and chronic kidney disease with heart failure and stage 1 through stage 4 chronic kidney disease, or unspecified chronic kidney disease; I50.32 Chronic diastolic (congestive) heart failure; I48.0 Paroxysmal atrial fibrillation; E11.22 Type 2 diabetes mellitus with diabetic chronic kidney disease; N18.30 Chronic kidney disease, stage 3 unspecified; E11.65 Type 2 diabetes mellitus with hyperglycemia; Z86.73 Personal history of transient ischemic attack (TIA), and cerebral infarction without residual deficits; I34.0 Nonrheumatic mitral (valve) insufficiency; I27.21 Secondary pulmonary arterial hypertension; E83.42 Hypomagnesemia; E78.5 Hyperlipidemia, unspecified; F17.200 Nicotine dependence, unspecified, uncomplicated; M19.90 Unspecified osteoarthritis, unspecified site; G90.8 Other disorders of autonomic nervous system; I25.10 Atherosclerotic heart disease of native coronary artery without angina pectoris; I27.81 Cor pulmonale (chronic); Z79.01 Long term (current) use of anticoagulants; Z79.4 Long term (current) use of insulin; Z82.49 Family history of ischemic heart disease and other diseases of the circulatory system; Z83.3 Family history of diabetes mellitus; Z91.14 Patient's other noncompliance with medication regimen; Z79.82 Long term (current) use of aspirin; Z79.899 Other long term (current) drug therapy
CPT/HCPCS: 36415; 70551; 71045; 76770; 80048; 80053; 80061; 81003; 82533; 82550; 82962; 83605; 83735; 83880; 83935; 84100; 84443; 84484; 85025; 93005; 93306; 93880; 97110; 97116; 97162; 99291; C1893; J1650; J1815; J3475; J7030; J8597

== ENCOUNTER 2020-12-29 13:26 | Inpatient (IN) | payer MEDICARE, MEDICAID ==
[~2020-12-29] VITALS: Ht 162.6 cm; Wt 67.6 kg
[~2020-12-29 13:26] MED LIST changes: -ASPI-1488 PO; -ATOR10TA MT; +CYAN-33 PO; -DILT240C91 MT; +DILT60TA35 PO; +FAMO20TA8 MT; -FAMO20TA8 PO; +FURO40TA5 MT; +GABA-532 PO; -GABA300C MT; +LOSA25TA26 MT; +MAGN400C PO; +METF-414 PO; +METO25TA6 MT; -NIFE30TA94 PO; +SPIR25TA6 MT; +VITAMIN D PO; -ZINC220C2 PO; -[UNRECOGNIZED DRUG - CODE] PO
[2020-12-29] MEDS ORDERED: SODIUM CHLORIDE 0.9% 500 ML IV ONE (14:45)
[2020-12-29 15:29] LABS: BASOPHILS % 0.9 % (0.0-2.0); EOSINOPHILS % 2.1 % (0.0-5.0); HEMATOCRIT. 44.1 % (36.0-48.0); HEMOGLOBIN. 14.7 g/dL (12.0-16.0); LYMPHOCYTES % 25.4 % (20.0-50.0); MEAN CORPUSCULAR HEMOGLOBIN 26.2 pg (28.0-32.0); MEAN CORPUSCULAR VOLUME 78.6 fL (81.0-99.0); MONOCYTES % 5.3 % (2.0-8.0); NEUTROPHILS % 66.3 % (40.0-76.0); PLATELET 166 x1000/uL (130-400); RED BLOOD CELL COUNT 5.61 mill/uL (4.2-5.4); RED CELL DISTRIBUTION WIDTH 18.7 % (11.6-14.6)
[2020-12-29 15:31] LABS: CHLORIDE 97 mEq/L (98-107)
[2020-12-29] MEDS ORDERED: ACETAMINOPHEN 325MG TABLET PO PRN (17:15)
[2020-12-29] MEDS ORDERED: IPRATROPIUM/ALBUTEROL 0.5-3(2.5)MG/3ML NEB HHN PRN (17:15)
[2020-12-29] MEDS ORDERED: ONDANSETRON HCL 4MG/2ML INJ IV PRN (17:15)
[2020-12-29] MEDS ORDERED: DEXTROSE 50% WATER 50ML SYRINGE IV PRN (17:30)
[2020-12-29 17:33] LABS: CLARITY URINE CLEAR (CLEAR); COLOR URINE YELLOW (YELLOW); KETONES URINE TRACE (NEGATIVE); LEUKOCYTE ESTERASE URINE 2+ (NEGATIVE); NITRITE URINE NEGATIVE (NEGATIVE); OCCULT BLOOD URINE NEGATIVE (NEGATIVE); PROTEIN URINE TRACE (NEGATIVE); SPECIFIC GRAVITY URINE 1.016 (1.005-1.030); UROBILINOGEN URINE 0.2 E.U./dL (0.2-1.0)
[2020-12-29] MEDS: DILTIAZEM HCL 30MG TABLET PO SCH (18:00)
[2020-12-29] MEDS: INSULIN LISPRO 100 UNITS/ML SUBCUT SCH ×2 (18:20→21:00)
[2020-12-29] MEDS: SODIUM CHLORIDE 0.45% 1,000 ML IV SCH (18:53)
[2020-12-29 19:23] LABS: INR 1.3; PROTHROMBIN TIME 13.8 sec (9.6-11.0)
[2020-12-29] MEDS: APIXABAN 2.5 MG TABLET PO SCH (20:10)
[2020-12-29] MEDS: BLOOD SUGAR DIAGNOSTIC STRIP TEST SCH ×2 (20:11→21:00)
[2020-12-30 00:24] LABS: CREATINE KINASE MB FRACTION < 1.0 ng/mL (0.5-3.6)
[2020-12-30] MEDS: SODIUM CHLORIDE 0.45% 1,000 ML IV SCH ×2 (04:18→14:49)
[2020-12-30 05:39] LABS: EOSINOPHILS % 3.1 % (0.0-5.0); HEMATOCRIT. 41.5 % (36.0-48.0); HEMOGLOBIN. 13.2 g/dL (12.0-16.0); LYMPHOCYTES % 39.7 % (20.0-50.0); MEAN CORPUSCULAR HEMOGLOBIN 25.4 pg (28.0-32.0); MEAN CORPUSCULAR VOLUME 79.8 fL (81.0-99.0); MONOCYTES % 6.8 % (2.0-8.0); NEUTROPHILS % 49.4 % (40.0-76.0); PLATELET 145 x1000/uL (130-400); RED BLOOD CELL COUNT 5.19 mill/uL (4.2-5.4); RED CELL DISTRIBUTION WIDTH 18.2 % (11.6-14.6)
[2020-12-30 05:44] LABS: CHLORIDE 103 mEq/L (98-107)
[2020-12-30 05:56] LABS: CREATINE KINASE MB FRACTION < 1.0 ng/mL (0.5-3.6)
[2020-12-30] MEDS: DILTIAZEM HCL 30MG TABLET PO SCH ×5 (06:00→23:55)
[2020-12-30] MEDS: INSULIN LISPRO 100 UNITS/ML SUBCUT SCH ×4 (07:00→20:45)
[2020-12-30] MEDS: BLOOD SUGAR DIAGNOSTIC STRIP TEST SCH ×4 (07:00→20:45)
[2020-12-30] MEDS: LEVOFLOXACIN 250MG PREMIX 50 ML IV SCH (09:00)
[2020-12-30] MEDS: MEMANTINE HCL 5MG TABLET PO SCH (09:35)
[2020-12-30] MEDS: APIXABAN 2.5 MG TABLET PO SCH ×2 (09:35→18:10)
[2020-12-30] MEDS: DONEPEZIL HCL 5MG TABLET PO SCH (09:35)
[2020-12-30 16:40] VITALS: BP 119/72
[2020-12-30 20:00] VITALS: BP 131/77
[2020-12-31] VITALS: BP 108/69
[2020-12-31 04:00] VITALS: BP 108/54
[2020-12-31] MEDS: SODIUM CHLORIDE 0.45% 1,000 ML IV SCH ×3 (04:18→20:00)
[2020-12-31] MEDS: DILTIAZEM HCL 30MG TABLET PO SCH ×3 (05:32→17:29)
[2020-12-31] MEDS: INSULIN LISPRO 100 UNITS/ML SUBCUT SCH ×4 (07:16→20:50)
[2020-12-31] MEDS: BLOOD SUGAR DIAGNOSTIC STRIP TEST SCH ×4 (07:16→20:51)
[2020-12-31] MEDS: APIXABAN 2.5 MG TABLET PO SCH ×2 (07:19→17:28)
[2020-12-31 07:42] LABS: BASOPHILS % 1.2 % (0.0-2.0); EOSINOPHILS % 3.1 % (0.0-5.0); HEMATOCRIT. 43.7 % (36.0-48.0); HEMOGLOBIN. 14.1 g/dL (12.0-16.0); LYMPHOCYTES % 40.4 % (20.0-50.0); MEAN CORPUSCULAR HEMOGLOBIN 25.6 pg (28.0-32.0); MEAN CORPUSCULAR VOLUME 79.5 fL (81.0-99.0); MEAN PLATELET VOLUME 11.4 fl (7.4-10.4); MONOCYTES % 5.7 % (2.0-8.0); NEUTROPHILS % 49.6 % (40.0-76.0); PLATELET 134 x1000/uL (130-400); RED CELL DISTRIBUTION WIDTH 18.6 % (11.6-14.6)
[2020-12-31 08:00] VITALS: BP 140/83
[2020-12-31] MEDS: LEVOFLOXACIN 250MG PREMIX 50 ML IV SCH (09:10)
[2020-12-31] MEDS: MEMANTINE HCL 5MG TABLET PO SCH (09:10)
[2020-12-31] MEDS ORDERED: SODIUM POLYSTYRENE SULFONATE 15 G/60 ML BOT PO NR (11:00)
[2020-12-31 12:00] VITALS: BP 111/61
[2020-12-31] MEDS: DONEPEZIL HCL 5MG TABLET PO SCH (12:45)
[2020-12-31] MEDS: FUROSEMIDE 20MG TABLET PO SCH (12:46)
[2020-12-31 16:00] VITALS: BP 126/61
[2020-12-31 20:00] VITALS: BP 130/66
[2020-12-31] MEDS: CARVEDILOL 3.125 MG TABLET PO SCH (20:57)
[2021-01-01] VITALS: BP 129/72
[2021-01-01] MEDS: DILTIAZEM HCL 30MG TABLET PO SCH ×4 (00:20→17:02)
[2021-01-01 04:00] VITALS: BP 110/56
[2021-01-01] MEDS: SODIUM CHLORIDE 0.45% 1,000 ML IV SCH (06:00)
[2021-01-01] MEDS: APIXABAN 2.5 MG TABLET PO SCH ×2 (06:35→17:02)
[2021-01-01] MEDS: BLOOD SUGAR DIAGNOSTIC STRIP TEST SCH ×3 (06:38→17:03)
[2021-01-01] MEDS: INSULIN LISPRO 100 UNITS/ML SUBCUT SCH ×3 (07:22→17:03)
[2021-01-01 08:00] VITALS: BP 108/61
[2021-01-01] MEDS: FUROSEMIDE 20MG TABLET PO SCH (09:00)
[2021-01-01] MEDS: CARVEDILOL 3.125 MG TABLET PO SCH (09:00)
[2021-01-01 09:38] LABS: BASOPHILS % 1.4 % (0.0-2.0); EOSINOPHILS % 3.4 % (0.0-5.0); HEMOGLOBIN. 12.4 g/dL (12.0-16.0); LYMPHOCYTES % 32.9 % (20.0-50.0); MEAN CORPUSCULAR HEMOGLOBIN 25.4 pg (28.0-32.0); MEAN CORPUSCULAR VOLUME 79.8 fL (81.0-99.0); MEAN PLATELET VOLUME 10.7 fl (7.4-10.4); MONOCYTES % 5.7 % (2.0-8.0); NEUTROPHILS % 56.6 % (40.0-76.0); PLATELET 120 x1000/uL (130-400); RED BLOOD CELL COUNT 4.89 mill/uL (4.2-5.4); RED CELL DISTRIBUTION WIDTH 18.7 % (11.6-14.6)
[2021-01-01] MEDS: MEMANTINE HCL 5MG TABLET PO SCH (09:46)
[2021-01-01] MEDS: DONEPEZIL HCL 5MG TABLET PO SCH (09:46)
[2021-01-01] MEDS ORDERED: LEVOFLOXACIN 250MG TABLET PO SCH (11:00)
[2021-01-01 12:00] VITALS: BP 124/54
[2021-01-01 16:00] VITALS: BP 121/70
[2021-01-01 17:55] VITALS: BP 121/70
== END 2021-01-01 19:50 | disposition home health service (06) | DRG 73 ==
LOC: ER 13:26 → MICUSO 16:11 → 8WST 12-30 14:20
PROVIDERS: ADMIT Internal Medicine Geriatric Medicine; ATTEND Internal Medicine Geriatric Medicine
DX: G90.9 Disorder of the autonomic nervous system, unspecified (principal); G93.41 Metabolic encephalopathy; I50.22 Chronic systolic (congestive) heart failure; I48.20 Chronic atrial fibrillation, unspecified; I42.9 Cardiomyopathy, unspecified; N17.9 Acute kidney failure, unspecified; E87.1 Hypo-osmolality and hyponatremia; I95.9 Hypotension, unspecified; E86.0 Dehydration; E11.42 Type 2 diabetes mellitus with diabetic polyneuropathy; D63.8 Anemia in other chronic diseases classified elsewhere; E78.5 Hyperlipidemia, unspecified; E87.5 Hyperkalemia; I08.1 Rheumatic disorders of both mitral and tricuspid valves; I11.0 Hypertensive heart disease with heart failure; I25.10 Atherosclerotic heart disease of native coronary artery without angina pectoris; I27.21 Secondary pulmonary arterial hypertension; N30.90 Cystitis, unspecified without hematuria; I48.0 Paroxysmal atrial fibrillation; I27.81 Cor pulmonale (chronic); F03.90 Unspecified dementia, unspecified severity, without behavioral disturbance, psychotic disturbance, mood disturbance, and anxiety; Z86.73 Personal history of transient ischemic attack (TIA), and cerebral infarction without residual deficits; Z90.710 Acquired absence of both cervix and uterus; Z79.899 Other long term (current) drug therapy; Z91.041 Radiographic dye allergy status; Z79.4 Long term (current) use of insulin; Z91.14 Patient's other noncompliance with medication regimen
CPT/HCPCS: 36415; 71045; 74176; 76770; 80048; 80053; 81003; 82553; 82962; 83036; 83735; 83880; 84443; 84484; 85025; 93005; 93306; 93880; 93970; 97161; 99285; A6261; J1956; J7040; J7042

== ENCOUNTER 2022-02-20 18:41 | Inpatient (IN) | payer MEDICARE, MEDICAID ==
[~2022-02-20] VITALS: Ht 172.7 cm; Wt 90.7 kg
[~2022-02-20 18:41] MED LIST changes: -LOSA50TA41 PO
[2022-02-20] MEDS ORDERED: ASPIRIN 81MG TABLET PO ONE (20:00)
[2022-02-20] MEDS ORDERED: NITROGLYCERIN 0.4MG TABLET SL SL PRN (20:00)
[2022-02-20 21:36] LABS: BASOPHILS % 0.7 % (0.0-2.0); EOSINOPHILS % 0.8 % (0.0-5.0); HEMATOCRIT. 41.2 % (36.0-48.0); HEMOGLOBIN. 13.5 g/dL (12.0-16.0); LYMPHOCYTES % 32.9 % (20.0-50.0); MEAN CORPUSCULAR HEMOGLOBIN 24.8 pg (28.0-32.0); MEAN CORPUSCULAR VOLUME 75.7 fL (81.0-99.0); MEAN PLATELET VOLUME 9.1 fl (7.4-10.4); MONOCYTES % 7.2 % (2.0-8.0); NEUTROPHILS % 58.4 % (40.0-76.0); PLATELET 242 x1000/uL (130-400); RED BLOOD CELL COUNT 5.45 mill/uL (4.2-5.4); RED CELL DISTRIBUTION WIDTH 23.1 % (11.6-14.6)
[2022-02-20 21:53] LABS: INR 1.2; PROTHROMBIN TIME 12.7 sec (9.6-11.0)
[2022-02-20 21:59] LABS: CHLORIDE 99 mEq/L (98-107)
[2022-02-20] MEDS ORDERED: ASPIRIN 81MG TABLET PO NR (22:45)
[2022-02-20 23:18] LABS: PLATELET ESTIMATE NORMAL
[2022-02-21] MEDS ORDERED: ACETAMINOPHEN 325MG TABLET PO ONE (00:30)
[2022-02-21 09:00] VITALS: BP 164/80
[2022-02-21] MEDS ORDERED: HYDRALAZINE 20MG/ML VIAL IV SCH (09:00)
[2022-02-21 10:00] VITALS: BP 164/90
[2022-02-21] MEDS ORDERED: DEXTROSE 50% WATER 50ML SYRINGE IV PRN (10:30)
[2022-02-21] MEDS ORDERED: ACETAMINOPHEN 325MG TABLET PO PRN ×2 (10:30)
[2022-02-21] MEDS ORDERED: DOCUSATE SODIUM 100MG CAPSULE PO PRN (10:30)
[2022-02-21] MEDS ORDERED: ONDANSETRON HCL 4MG/2ML INJ IV PRN (10:30)
[2022-02-21] MEDS ORDERED: CLONIDINE 0.1MG TABLET PO PRN (10:30)
[2022-02-21] MEDS ORDERED: ENOXAPARIN 40MG/0.4ML SYR SUBCUT SCH (10:39)
[2022-02-21 10:41] VITALS: BP 164/90
[2022-02-21] MEDS ORDERED: GABAPENTIN 300MG CAPSULE PO PRN (10:45)
[2022-02-21] MEDS: BLOOD SUGAR DIAGNOSTIC STRIP TEST SCH ×4 (11:30→21:09)
[2022-02-21 12:00] VITALS: BP 117/65
[2022-02-21] MEDS: INSULIN LISPRO 100 UNITS/ML SUBCUT SCH ×4 (12:00→21:00)
[2022-02-21] MEDS: APIXABAN 5 MG TABLET PO SCH ×2 (12:51→21:17)
[2022-02-21] MEDS: METOPROLOL TARTRATE 25MG TABLET PO SCH ×2 (12:51→21:18)
[2022-02-21] MEDS: DILTIAZEM HCL 30MG TABLET PO SCH ×2 (12:51→21:17)
[2022-02-21] MEDS: FUROSEMIDE 40MG TABLET PO SCH (12:52)
[2022-02-21] MEDS: LOSARTAN POTASSIUM 25 MG TABLET PO SCH (12:52)
[2022-02-21] MEDS: SPIRONOLACTONE 25MG TABLET PO SCH ×2 (12:52→18:13)
[2022-02-21] MEDS: SODIUM CHLORIDE 0.9% INJ 3ML FLUSH IVF SCH ×2 (15:52→21:20)
[2022-02-21 16:00] VITALS: BP 113/68
[2022-02-21 16:57] LABS: CREATINE KINASE 54 IU/L (26-192); CREATINE KINASE MB FRACTION < 1.0 ng/mL (0.5-3.6); HDL CHOLESTEROL 56 mg/dL (40-59); LDL CHOLESTEROL 89 mg/dL (5-100)
[2022-02-21 20:00] VITALS: BP 120/72
[2022-02-21] MEDS: ASCORBIC ACID 500 MG TABLET PO SCH (21:18)
[2022-02-21] MEDS: FAMOTIDINE 20MG TABLET PO SCH (21:23)
[2022-02-21 23:36] LABS: CREATINE KINASE 52 IU/L (26-192); CREATINE KINASE MB FRACTION < 1.0 ng/mL (0.5-3.6)
[2022-02-22] VITALS: BP 118/68
[2022-02-22 04:00] VITALS: BP 138/62
[2022-02-22] MEDS: SODIUM CHLORIDE 0.9% INJ 3ML FLUSH IVF SCH ×2 (05:46→22:00)
[2022-02-22] MEDS: BLOOD SUGAR DIAGNOSTIC STRIP TEST SCH ×2 (05:47→21:00)
[2022-02-22] MEDS: INSULIN LISPRO 100 UNITS/ML SUBCUT SCH ×2 (05:47→21:00)
[2022-02-22 07:12] LABS: BASOPHILS % 0.9 % (0.0-2.0); EOSINOPHILS % 1.5 % (0.0-5.0); HEMATOCRIT. 42.1 % (36.0-48.0); HEMOGLOBIN. 13.5 g/dL (12.0-16.0); LYMPHOCYTES % 39.6 % (20.0-50.0); MEAN CORPUSCULAR HEMOGLOBIN 24.8 pg (28.0-32.0); MEAN CORPUSCULAR VOLUME 77.1 fL (81.0-99.0); MEAN PLATELET VOLUME 9.5 fl (7.4-10.4); MONOCYTES % 6.6 % (2.0-8.0); NEUTROPHILS % 51.4 % (40.0-76.0); PLATELET 218 x1000/uL (130-400); RED BLOOD CELL COUNT 5.46 mill/uL (4.2-5.4); RED CELL DISTRIBUTION WIDTH 22.9 % (11.6-14.6)
[2022-02-22 07:58] LABS: PHOSPHORUS 3.9 mg/dL (2.5-4.9)
[2022-02-22 08:00] VITALS: BP 113/59
[2022-02-22] MEDS: METOPROLOL TARTRATE 25MG TABLET PO SCH (08:03)
[2022-02-22] MEDS: LOSARTAN POTASSIUM 25 MG TABLET PO SCH (09:11)
[2022-02-22] MEDS: SPIRONOLACTONE 25MG TABLET PO SCH (09:11)
[2022-02-22] MEDS: ASCORBIC ACID 500 MG TABLET PO SCH (09:11)
[2022-02-22] MEDS: APIXABAN 5 MG TABLET PO SCH (09:12)
[2022-02-22] MEDS: FUROSEMIDE 40MG TABLET PO SCH (09:12)
[2022-02-22] MEDS: DILTIAZEM HCL 30MG TABLET PO SCH (09:12)
[2022-02-22 12:00] VITALS: BP 99/56
[2022-02-22 16:00] VITALS: BP 131/64
[2022-02-22 20:00] VITALS: BP 137/85
[2022-02-23] VITALS: BP 115/61
[2022-02-23] MEDS: DILTIAZEM HCL 30MG TABLET PO SCH (03:30)
[2022-02-23] MEDS: FAMOTIDINE 20MG TABLET PO SCH (03:31)
[2022-02-23] MEDS: APIXABAN 5 MG TABLET PO SCH (03:31)
[2022-02-23] MEDS: ASCORBIC ACID 500 MG TABLET PO SCH (03:31)
[2022-02-23] MEDS: METOPROLOL TARTRATE 25MG TABLET PO SCH (03:31)
[2022-02-23 04:00] VITALS: BP 157/89
[2022-02-23] MEDS: SODIUM CHLORIDE 0.9% INJ 3ML FLUSH IVF SCH (06:00)
[2022-02-23] MEDS: INSULIN LISPRO 100 UNITS/ML SUBCUT SCH (07:28)
[2022-02-23] MEDS: BLOOD SUGAR DIAGNOSTIC STRIP TEST SCH (07:28)
[2022-02-23 08:00] VITALS: BP 146/80
[2022-02-23 08:13] VITALS: BP 146/80
== END 2022-02-23 08:50 | disposition home health service (06) | DRG 206 ==
LOC: ER 18:41 → EDBEDREQ 02-21 01:10 → EDBEDREQTM 02-21 01:10 → MICUSO 02-21 03:48 → 8WST 02-21 12:09
PROVIDERS: ADMIT Internal Medicine; ATTEND Internal Medicine
DX: M94.0 Chondrocostal junction syndrome [Tietze] (principal); I48.20 Chronic atrial fibrillation, unspecified; I11.0 Hypertensive heart disease with heart failure; I50.9 Heart failure, unspecified; E11.9 Type 2 diabetes mellitus without complications; I48.0 Paroxysmal atrial fibrillation; M19.90 Unspecified osteoarthritis, unspecified site; I25.10 Atherosclerotic heart disease of native coronary artery without angina pectoris; I34.0 Nonrheumatic mitral (valve) insufficiency; I27.21 Secondary pulmonary arterial hypertension; I27.81 Cor pulmonale (chronic); Z79.4 Long term (current) use of insulin; Z79.01 Long term (current) use of anticoagulants; Z82.49 Family history of ischemic heart disease and other diseases of the circulatory system; Z83.3 Family history of diabetes mellitus; Z88.8 Allergy status to other drugs, medicaments and biological substances; Z79.899 Other long term (current) drug therapy; Z86.73 Personal history of transient ischemic attack (TIA), and cerebral infarction without residual deficits; Z79.84 Long term (current) use of oral hypoglycemic drugs
CPT/HCPCS: 36415; 71045; 76604; 80048; 80053; 80061; 82330; 82550; 82553; 82962; 83036; 83735; 83880; 84100; 84484; 85025; 93005; 93880; 99285; J0360; J1815

== ENCOUNTER 2022-07-28 11:27 | Inpatient (IN) | payer MEDICARE, MEDICAID ==
[~2022-07-28] VITALS: Ht 152.4 cm; Wt 74.8 kg
[2022-07-28] MEDS ORDERED: SODIUM CHLORIDE 0.9% 1,000 ML IV ONE (11:45)
[2022-07-28] MEDS ORDERED: FUROSEMIDE 40MG/4ML VIAL IVP ONE (11:45)
[2022-07-28 12:28] LABS: CHLORIDE 114 mEq/L (98-107)
[2022-07-28 12:32] LABS: BASOPHILS % 1.6 % (0.0-2.0); EOSINOPHILS % 0.9 % (0.0-5.0); LYMPHOCYTES % 23.1 % (20.0-50.0); MEAN CORPUSCULAR VOLUME 73.4 fL (81.0-99.0); MEAN PLATELET VOLUME 8.5 fl (7.4-10.4); MONOCYTES % 6.7 % (2.0-8.0); NEUTROPHILS % 67.7 % (40.0-76.0); PLATELET 150 x1000/uL (130-400); RED BLOOD CELL COUNT 1.86 mill/uL (4.2-5.4); RED CELL DISTRIBUTION WIDTH 21.1 % (11.6-14.6)
[2022-07-28 12:35] LABS: HEMOGLOBIN. 4.1 g/dL (12.0-16.0)
[2022-07-28 12:36] LABS: HEMATOCRIT. 13.6 % (36.0-48.0)
[2022-07-28 13:05] LABS: INR 1.3; PARTIAL THROMBOPLASTIN TIME 27.5 sec (23.4-31.0)
[2022-07-28] MEDS ORDERED: CEFTRIAXONE 1GM PREMIX 50 ML IV ONE (15:30)
[2022-07-28 15:41] LABS: CLARITY URINE CLOUDY (CLEAR); COLOR URINE RED (YELLOW); KETONES URINE NEGATIVE (NEGATIVE); LEUKOCYTE ESTERASE URINE 1+ (NEGATIVE); NITRITE URINE NEGATIVE (NEGATIVE); OCCULT BLOOD URINE 3+ (NEGATIVE); PROTEIN URINE 3+ (NEGATIVE); SPECIFIC GRAVITY URINE 1.016 (1.005-1.030); UROBILINOGEN URINE 0.2 E.U./dL (0.2-1.0)
[2022-07-28] MEDS: FUROSEMIDE 40MG/4ML VIAL IVP SCH (18:30)
[2022-07-28] MEDS ORDERED: ONDANSETRON HCL 4MG/2ML INJ IV PRN (18:30)
[2022-07-28] MEDS ORDERED: IPRATROPIUM/ALBUTEROL 0.5-3(2.5)MG/3ML NEB HHN PRN (18:30)
[2022-07-28] MEDS ORDERED: DEXTROSE 50% WATER 50ML SYRINGE IV PRN ×3 (18:45)
[2022-07-28 19:03] LABS: TOTAL IRON BINDING CAPACITY 379 ug/dL (250-450)
[2022-07-28 20:26] VITALS: BP 168/99
[2022-07-28 20:32] LABS: BASOPHILS % 1.2 % (0.0-2.0); EOSINOPHILS % 0.7 % (0.0-5.0); HEMATOCRIT. 23.4 % (36.0-48.0); HEMOGLOBIN. 7.1 g/dL (12.0-16.0); LYMPHOCYTES % 23.5 % (20.0-50.0); MEAN CORPUSCULAR HEMOGLOBIN 22.3 pg (28.0-32.0); MEAN PLATELET VOLUME 8.4 fl (7.4-10.4); MONOCYTES % 6.7 % (2.0-8.0); NEUTROPHILS % 67.9 % (40.0-76.0); PLATELET 238 x1000/uL (130-400); RED BLOOD CELL COUNT 3.21 mill/uL (4.2-5.4); RED CELL DISTRIBUTION WIDTH 20.2 % (11.6-14.6)
[2022-07-28] MEDS: BLOOD SUGAR DIAGNOSTIC STRIP TEST SCH (20:49)
[2022-07-28] MEDS: INSULIN LISPRO 100 UNITS/ML SUBCUT SCH (20:49)
[2022-07-28] MEDS ORDERED: INSULIN LISPRO 100 UNITS/ML SUBCUT SCH (21:00)
[2022-07-28] MEDS ORDERED: BLOOD SUGAR DIAGNOSTIC STRIP TEST SCH (21:00)
[2022-07-28] MEDS: SILDENAFIL CITRATE 20MG TABLET PO SCH (21:16)
[2022-07-28] MEDS: ATORVASTATIN CALCIUM 10MG TABLET PO SCH (21:16)
[2022-07-28] MEDS: FAMOTIDINE 20MG TABLET PO SCH (21:17)
[2022-07-28 23:54] VITALS: BP 168/86
[2022-07-29] VITALS (10 sets, daily range): BP systolic 104–172; BP diastolic 40–96
[2022-07-29 04:50] LABS: BASOPHILS % 1.2 % (0.0-2.0); EOSINOPHILS % 1.6 % (0.0-5.0); HEMATOCRIT. 28.3 % (36.0-48.0); HEMOGLOBIN. 9.1 g/dL (12.0-16.0); LYMPHOCYTES % 20.8 % (20.0-50.0); MEAN CORPUSCULAR HEMOGLOBIN 24.4 pg (28.0-32.0); MEAN CORPUSCULAR VOLUME 75.5 fL (81.0-99.0); MEAN PLATELET VOLUME 8.8 fl (7.4-10.4); MONOCYTES % 6.8 % (2.0-8.0); NEUTROPHILS % 69.6 % (40.0-76.0); PLATELET 226 x1000/uL (130-400); RED BLOOD CELL COUNT 3.74 mill/uL (4.2-5.4)
[2022-07-29] MEDS ORDERED: *PATIENT'S OWN MEDICATION STORAGE XX SCH (05:15)
[2022-07-29] MEDS: CARVEDILOL 6.25 MG TABLET PO SCH ×2 (06:01→17:50)
[2022-07-29] MEDS: SILDENAFIL CITRATE 20MG TABLET PO SCH ×3 (06:01→21:25)
[2022-07-29] MEDS: BLOOD SUGAR DIAGNOSTIC STRIP TEST SCH ×4 (06:12→21:25)
[2022-07-29] MEDS: INSULIN LISPRO 100 UNITS/ML SUBCUT SCH ×4 (06:13→21:00)
[2022-07-29] MEDS: FERROUS SULFATE 325MG TABLET PO SCH ×3 (08:58→17:47)
[2022-07-29] MEDS: METFORMIN HCL 500MG TABLET PO SCH ×2 (08:58→17:47)
[2022-07-29] MEDS: DILTIAZEM HCL 120MG CAPSULE ER 24HR PO SCH (08:59)
[2022-07-29] MEDS: DOCUSATE SODIUM 250MG CAPSULE PO SCH (08:59)
[2022-07-29] MEDS: LOSARTAN POTASSIUM 25 MG TABLET PO SCH (08:59)
[2022-07-29] MEDS: ACETAMINOPHEN 325MG TABLET PO PRN (09:02)
[2022-07-29] MEDS: FUROSEMIDE 40MG/4ML VIAL IVP SCH (09:02)
[2022-07-29] MEDS ORDERED: ALBUTEROL (0.083%) 2.5MG/3ML NEB HHN PRN (16:45)
[2022-07-29] MEDS ORDERED: IPRATROPIUM BROMIDE (0.02%) 0.5MG/2.5ML NEB HHN PRN (16:45)
[2022-07-29] MEDS: FAMOTIDINE 20MG TABLET PO SCH (21:24)
[2022-07-29] MEDS: ATORVASTATIN CALCIUM 10MG TABLET PO SCH (21:24)
[2022-07-30] VITALS: BP 108/53
[2022-07-30 04:00] VITALS: BP 156/53
[2022-07-30] MEDS: SILDENAFIL CITRATE 20MG TABLET PO SCH ×3 (05:36→21:40)
[2022-07-30] MEDS: CARVEDILOL 6.25 MG TABLET PO SCH ×2 (05:37→17:50)
[2022-07-30] MEDS: ACETAMINOPHEN 325MG TABLET PO PRN (05:43)
[2022-07-30] MEDS: BLOOD SUGAR DIAGNOSTIC STRIP TEST SCH ×4 (06:17→20:25)
[2022-07-30] MEDS: INSULIN LISPRO 100 UNITS/ML SUBCUT SCH ×4 (06:18→20:25)
[2022-07-30 06:59] LABS: BASOPHILS % 1.1 % (0.0-2.0); EOSINOPHILS % 1.7 % (0.0-5.0); HEMATOCRIT. 28.8 % (36.0-48.0); LYMPHOCYTES % 20.3 % (20.0-50.0); MEAN CORPUSCULAR HEMOGLOBIN 24.1 pg (28.0-32.0); MEAN CORPUSCULAR VOLUME 77.4 fL (81.0-99.0); MEAN PLATELET VOLUME 8.6 fl (7.4-10.4); MONOCYTES % 6.4 % (2.0-8.0); NEUTROPHILS % 70.5 % (40.0-76.0); PLATELET 203 x1000/uL (130-400); RED BLOOD CELL COUNT 3.72 mill/uL (4.2-5.4)
[2022-07-30 08:00] VITALS: BP 154/59
[2022-07-30] MEDS: METFORMIN HCL 500MG TABLET PO SCH ×2 (08:01→17:51)
[2022-07-30] MEDS: DOCUSATE SODIUM 250MG CAPSULE PO SCH (08:01)
[2022-07-30] MEDS: FUROSEMIDE 40MG/4ML VIAL IVP SCH (08:01)
[2022-07-30] MEDS: FERROUS SULFATE 325MG TABLET PO SCH ×3 (08:01→17:51)
[2022-07-30] MEDS: DILTIAZEM HCL 120MG CAPSULE ER 24HR PO SCH (08:01)
[2022-07-30] MEDS: LOSARTAN POTASSIUM 25 MG TABLET PO SCH (08:01)
[2022-07-30 08:27] LABS: PLATELET ESTIMATE NORMAL
[2022-07-30 12:00] VITALS: BP 122/54
[2022-07-30 16:00] VITALS: BP 103/57
[2022-07-30 20:00] VITALS: BP 145/55
[2022-07-30] MEDS: ATORVASTATIN CALCIUM 10MG TABLET PO SCH (20:24)
[2022-07-30] MEDS: FAMOTIDINE 20MG TABLET PO SCH (20:24)
[2022-07-31] VITALS (7 sets, daily range): BP systolic 120–169; BP diastolic 70–78
[2022-07-31] MEDS: CARVEDILOL 6.25 MG TABLET PO SCH (05:24)
[2022-07-31] MEDS: SILDENAFIL CITRATE 20MG TABLET PO SCH ×2 (05:24→14:11)
[2022-07-31] MEDS: BLOOD SUGAR DIAGNOSTIC STRIP TEST SCH ×2 (06:16→12:28)
[2022-07-31] MEDS: INSULIN LISPRO 100 UNITS/ML SUBCUT SCH ×2 (06:16→12:10)
[2022-07-31] MEDS: FERROUS SULFATE 325MG TABLET PO SCH ×2 (08:19→14:11)
[2022-07-31] MEDS: LOSARTAN POTASSIUM 25 MG TABLET PO SCH (08:19)
[2022-07-31] MEDS: FUROSEMIDE 40MG/4ML VIAL IVP SCH (08:19)
[2022-07-31] MEDS: METFORMIN HCL 500MG TABLET PO SCH (08:19)
[2022-07-31] MEDS: DILTIAZEM HCL 120MG CAPSULE ER 24HR PO SCH (08:23)
[2022-07-31] MEDS: DOCUSATE SODIUM 250MG CAPSULE PO SCH (08:23)
[2022-09-17] MEDS ORDERED: DILT-26 PO (17:52)
[2022-09-17] MEDS ORDERED: EMPA10TA PO (17:55)
[2022-09-17] MEDS ORDERED: FERR325T6 PO (17:56)
[2022-09-17] MEDS ORDERED: SILD20TA PO (17:57)
[2022-09-17] MEDS ORDERED: APIX5TAB PO (17:58)
== END 2022-07-31 16:40 | disposition home or self-care (01) | DRG 687 ==
LOC: ER 11:27 → EDBEDREQSVC 16:07 → EDBEDREQ 16:07 → EDBEDREQTM 16:07 → ENRESERV 16:41 → CANRESERV 16:41 → EDBEDREQSVC 17:26 → EDBEDREQTM 17:33 → EDBEDREQ 17:33 → EDBEDREQSVC 18:28 → 7EST 18:57
PROVIDERS: ADMIT Internal Medicine Geriatric Medicine; ATTEND Internal Medicine Geriatric Medicine
PROC: 30233N1 Transfusion of Nonautologous Red Blood Cells into Peripheral Vein, Percutaneous Approach (ICD-10-PCS; principal; 2022-07-28)
PROC: 30233N1 Transfusion of Nonautologous Red Blood Cells into Peripheral Vein, Percutaneous Approach (ICD-10-PCS; 2022-07-28)
DX: C67.9 Malignant neoplasm of bladder, unspecified (principal); I48.20 Chronic atrial fibrillation, unspecified; I50.22 Chronic systolic (congestive) heart failure; N13.6 Pyonephrosis; D50.9 Iron deficiency anemia, unspecified; I27.29 Other secondary pulmonary hypertension; F03.90 Unspecified dementia, unspecified severity, without behavioral disturbance, psychotic disturbance, mood disturbance, and anxiety; J44.9 Chronic obstructive pulmonary disease, unspecified; I34.0 Nonrheumatic mitral (valve) insufficiency; R31.0 Gross hematuria; I48.0 Paroxysmal atrial fibrillation; I25.10 Atherosclerotic heart disease of native coronary artery without angina pectoris; N32.89 Other specified disorders of bladder; F02.80 Dementia in other diseases classified elsewhere, unspecified severity, without behavioral disturbance, psychotic disturbance, mood disturbance, and anxiety; Z82.49 Family history of ischemic heart disease and other diseases of the circulatory system; Z91.041 Radiographic dye allergy status; Z86.73 Personal history of transient ischemic attack (TIA), and cerebral infarction without residual deficits; Z79.899 Other long term (current) drug therapy; Z79.84 Long term (current) use of oral hypoglycemic drugs; Z79.4 Long term (current) use of insulin; Z79.01 Long term (current) use of anticoagulants; Z91.14 Patient's other noncompliance with medication regimen
CPT/HCPCS: 36415; 71045; 74176; 76830; 76856; 80048; 80053; 81003; 82270; 82962; 83036; 83540; 83550; 83880; 84484; 85025; 86850; 86900; 86920; 93005; 93970; 97162; 99285; C1893; J0696; J1940; J7030; P9016

== ENCOUNTER 2022-09-09 10:15 | Inpatient (IN) | payer MEDICARE, MEDICAID ==
[~2022-09-09] VITALS: Ht 167.6 cm; Wt 86.2 kg
[~2022-09-09 10:15] MED LIST changes: -APIX5TAB PO
[2022-09-09 11:00] LABS: BASOPHILS % 1.1 % (0.0-2.0); EOSINOPHILS % 1.1 % (0.0-5.0); HEMOGLOBIN. 9.3 g/dL (12.0-16.0); LYMPHOCYTES % 11.2 % (20.0-50.0); MEAN CORPUSCULAR HEMOGLOBIN 24.6 pg (28.0-32.0); MEAN CORPUSCULAR VOLUME 76.5 fL (81.0-99.0); MEAN PLATELET VOLUME 8.3 fl (7.4-10.4); NEUTROPHILS % 79.6 % (40.0-76.0); PLATELET 199 x1000/uL (130-400); RED BLOOD CELL COUNT 3.79 mill/uL (4.2-5.4); RED CELL DISTRIBUTION WIDTH 26.4 % (11.6-14.6)
[2022-09-09 11:08] LABS: INR 1.4; PROTHROMBIN TIME 14.8 sec (9.6-11.0)
[2022-09-09 11:17] LABS: CHLORIDE 105 mEq/L (98-107)
[2022-09-09 11:42] LABS: PLATELET ESTIMATE NORMAL
[2022-09-09] MEDS: SODIUM CHLORIDE 0.45% 1,000 ML IV SCH ×2 (17:30→22:20)
[2022-09-09] MEDS ORDERED: ACETAMINOPHEN 325MG TABLET PO PRN (17:45)
[2022-09-09] MEDS ORDERED: DILTIAZEM HCL 120MG CAPSULE ER 24HR PO NR (17:45)
[2022-09-09] MEDS ORDERED: CARVEDILOL 12.5MG TABLET PO SCH (18:00)
[2022-09-09] MEDS: CARVEDILOL 6.25 MG TABLET PO SCH (19:00)
[2022-09-09 20:00] VITALS: BP 173/88
[2022-09-09] MEDS: FAMOTIDINE 20MG TABLET PO SCH (22:20)
[2022-09-09] MEDS: SILDENAFIL CITRATE 20MG TABLET PO SCH (22:20)
[2022-09-10] VITALS (7 sets, daily range): BP systolic 117–149; BP diastolic 53–86
[2022-09-10] MEDS: SILDENAFIL CITRATE 20MG TABLET PO SCH ×3 (05:52→21:12)
[2022-09-10] MEDS: CARVEDILOL 6.25 MG TABLET PO SCH (05:53)
[2022-09-10 07:11] LABS: HEMATOCRIT. 28.5 % (36.0-48.0); HEMOGLOBIN. 9.3 g/dL (12.0-16.0); MEAN CORPUSCULAR HEMOGLOBIN 25.3 pg (28.0-32.0); PLATELET 166 x1000/uL (130-400); RED BLOOD CELL COUNT 3.66 mill/uL (4.2-5.4); RED CELL DISTRIBUTION WIDTH 26.9 % (11.6-14.6)
[2022-09-10 07:34] LABS: CHLORIDE 107 mEq/L (98-107)
[2022-09-10 07:43] LABS: PHOSPHORUS 4.5 mg/dL (2.5-4.9)
[2022-09-10] MEDS ORDERED: ENOXAPARIN 30MG/0.3ML SYR SUBCUT SCH (09:00)
[2022-09-10] MEDS ORDERED: FOLIC ACID/VITAMIN B COMP W-C TABLET PO SCH (09:00)
[2022-09-10] MEDS ORDERED: DILTIAZEM HCL 120MG CAPSULE ER 24HR PO SCH (09:00)
[2022-09-10] MEDS: FOLIC ACID/VITAMIN B COMP W-C TABLET PO SCH (09:55)
[2022-09-10 10:58] LABS: TOTAL IRON BINDING CAPACITY 267 ug/dL (250-450)
[2022-09-10] MEDS: DEXT 5%/0.9% NACL 1,000 ML IV SCH ×2 (11:00→21:13)
[2022-09-10] MEDS: CARVEDILOL 12.5MG TABLET PO SCH (19:01)
[2022-09-11] VITALS (17 sets, daily range): BP systolic 127–165; BP diastolic 57–107
[2022-09-11] MEDS: CARVEDILOL 12.5MG TABLET PO SCH ×2 (05:33→17:38)
[2022-09-11] MEDS: SILDENAFIL CITRATE 20MG TABLET PO SCH ×3 (05:33→21:03)
[2022-09-11] MEDS: DEXT 5%/0.9% NACL 1,000 ML IV SCH ×2 (07:21→17:34)
[2022-09-11 07:56] LABS: EOSINOPHILS % 0.9 % (0.0-5.0); HEMATOCRIT. 25.1 % (36.0-48.0); MEAN CORPUSCULAR HEMOGLOBIN 24.5 pg (28.0-32.0); MEAN CORPUSCULAR VOLUME 76.6 fL (81.0-99.0); MEAN PLATELET VOLUME 8.8 fl (7.4-10.4); MONOCYTES % 6.5 % (2.0-8.0); NEUTROPHILS % 81.6 % (40.0-76.0); PLATELET 161 x1000/uL (130-400); RED BLOOD CELL COUNT 3.28 mill/uL (4.2-5.4)
[2022-09-11] MEDS ORDERED: LIDOCAINE HCL 1% 10 MG/ML 10ML VIAL ONE (08:43)
[2022-09-11] MEDS ORDERED: IOHEXOL-300 50 ML BOTTLE IV ONE (08:43)
[2022-09-11] MEDS ORDERED: PIPERACILLIN/TAZ 3.375G PREMIX 50 ML IV ONE (08:45)
[2022-09-11] MEDS ORDERED: FENTANYL CITRATE/PF 50MCG/ML 2ML VIAL ONE (09:15)
[2022-09-11] MEDS ORDERED: DIPHENHYDRAMINE 50MG/ML VIAL IV NR (09:15)
[2022-09-11] MEDS ORDERED: DIPHENHYDRAMINE 50MG/ML VIAL ONE (09:28)
[2022-09-11 10:04] LABS: PLATELET ESTIMATE NORMAL
[2022-09-11 12:23] LABS: HEMOGLOBIN 8.8 g/dL (12.0-16.0)
[2022-09-11] MEDS: FERROUS SULFATE 325MG TABLET PO SCH ×2 (13:20→17:36)
[2022-09-11] MEDS: FOLIC ACID/VITAMIN B COMP W-C TABLET PO SCH (13:20)
[2022-09-11] MEDS: FAMOTIDINE 20MG TABLET PO SCH (21:01)
[2022-09-11 23:30] LABS: BG BASE EXCESS -4.8 mmol/L (-2.0-2.0); BG CARBOXYHEMOGLOBIN 2.7 % (0.5-1.5); BG DEOXYHEMOGLOBIN 6.1 % (0.0-5.0); BG FRACTION INSPIRED OXYGEN 21; BG HCO3 ACT 19.3 mmol/L (22.0-26.0); BG METHEMOGLOBIN 0.3 % (0.0-1.5); BG OXYGEN SATURATION 93.7 % (92.0-98.5); BG OXYHEMOGLOBIN 90.9 % (94.0-97.0); BG PCO2 31.6 mmHg (35.0-45.0); BG PH 7.403 (7.350-7.450); BG PO2 75.1 mmHg (75.0-100.0); BG SAMPLE SITE RIGHT RADIAL; BG TOTAL HEMOGLOBIN 8.7 g/dL (12.0-18.0); BG VENT MODE ROOM AIR
[2022-09-12] VITALS: BP 144/80
[2022-09-12 04:00] VITALS: BP 171/80
[2022-09-12] MEDS: CARVEDILOL 12.5MG TABLET PO SCH ×2 (05:43→16:46)
[2022-09-12] MEDS: SILDENAFIL CITRATE 20MG TABLET PO SCH ×3 (05:44→21:52)
[2022-09-12] MEDS: DEXT 5%/0.9% NACL 1,000 ML IV SCH ×3 (05:44→21:52)
[2022-09-12 07:47] LABS: HEMOGLOBIN. 8.7 g/dL (12.0-16.0); MEAN CORPUSCULAR HEMOGLOBIN 25.2 pg (28.0-32.0); MEAN CORPUSCULAR VOLUME 75.4 fL (81.0-99.0); MEAN PLATELET VOLUME 8.6 fl (7.4-10.4); PLATELET 163 x1000/uL (130-400); RED BLOOD CELL COUNT 3.44 mill/uL (4.2-5.4); RED CELL DISTRIBUTION WIDTH 26.7 % (11.6-14.6)
[2022-09-12 08:00] VITALS: BP 169/91
[2022-09-12] MEDS: FERROUS SULFATE 325MG TABLET PO SCH ×3 (09:01→16:46)
[2022-09-12] MEDS: FOLIC ACID/VITAMIN B COMP W-C TABLET PO SCH (09:01)
[2022-09-12] MEDS: LIDOCAINE 5% PATCH TOP SCH ×2 (09:01→09:05)
[2022-09-12] MEDS ORDERED: LEVOFLOXACIN 250MG PREMIX 50 ML IV SCH (09:30)
[2022-09-12 12:00] VITALS: BP 169/97
[2022-09-12] MEDS ORDERED: DILTIAZEM HCL 180MG CAPSULE ER 24HR PO NR (12:45)
[2022-09-12 13:48] LABS: PLATELET ESTIMATE NORMAL
[2022-09-12 16:00] VITALS: BP 164/77
[2022-09-12 20:00] VITALS: BP 162/84
[2022-09-13] VITALS: BP 157/87
[2022-09-13 04:00] VITALS: BP 134/56
[2022-09-13] MEDS: CARVEDILOL 12.5MG TABLET PO SCH ×2 (06:00→17:28)
[2022-09-13] MEDS: SILDENAFIL CITRATE 20MG TABLET PO SCH ×3 (06:29→22:00)
[2022-09-13 07:48] LABS: BASOPHILS % 0.4 % (0.0-2.0); EOSINOPHILS % 0.3 % (0.0-5.0); HEMATOCRIT. 25.7 % (36.0-48.0); HEMOGLOBIN. 8.3 g/dL (12.0-16.0); LYMPHOCYTES % 12.4 % (20.0-50.0); MEAN CORPUSCULAR HEMOGLOBIN 25.2 pg (28.0-32.0); MEAN CORPUSCULAR VOLUME 77.5 fL (81.0-99.0); MEAN PLATELET VOLUME 8.8 fl (7.4-10.4); MONOCYTES % 8.2 % (2.0-8.0); NEUTROPHILS % 78.7 % (40.0-76.0); PLATELET 130 x1000/uL (130-400); RED BLOOD CELL COUNT 3.31 mill/uL (4.2-5.4); RED CELL DISTRIBUTION WIDTH 27.2 % (11.6-14.6)
[2022-09-13 08:00] VITALS: BP 151/81
[2022-09-13] MEDS: DEXT 5%/0.9% NACL 1,000 ML IV SCH ×2 (09:00→20:14)
[2022-09-13] MEDS ORDERED: APIXABAN 2.5 MG TABLET PO SCH (09:00)
[2022-09-13 12:00] VITALS: BP 146/70
[2022-09-13] MEDS: LIDOCAINE 5% PATCH TOP SCH (12:05)
[2022-09-13] MEDS: APIXABAN 2.5 MG TABLET PO SCH ×2 (12:06→17:27)
[2022-09-13] MEDS: FOLIC ACID/VITAMIN B COMP W-C TABLET PO SCH (12:06)
[2022-09-13] MEDS: FERROUS SULFATE 325MG TABLET PO SCH ×3 (12:06→17:27)
[2022-09-13] MEDS: DILTIAZEM HCL 180MG CAPSULE ER 24HR PO SCH (12:07)
[2022-09-13 16:00] VITALS: BP 125/53
[2022-09-13 20:00] VITALS: BP 137/65
[2022-09-13] MEDS: FAMOTIDINE 20MG TABLET PO SCH (22:00)
[2022-09-14] VITALS (13 sets, daily range): BP systolic 132–157; BP diastolic 49–92
[2022-09-14] MEDS: CARVEDILOL 12.5MG TABLET PO SCH ×2 (05:28→17:18)
[2022-09-14] MEDS: SILDENAFIL CITRATE 20MG TABLET PO SCH ×3 (05:33→21:36)
[2022-09-14] MEDS: DEXT 5%/0.9% NACL 1,000 ML IV SCH ×2 (05:34→21:36)
[2022-09-14 06:24] LABS: BASOPHILS % 0.6 % (0.0-2.0); HEMATOCRIT. 22.4 % (36.0-48.0); HEMOGLOBIN. 7.2 g/dL (12.0-16.0); LYMPHOCYTES % 12.1 % (20.0-50.0); MEAN CORPUSCULAR HEMOGLOBIN 25.1 pg (28.0-32.0); MEAN CORPUSCULAR VOLUME 78.2 fL (81.0-99.0); MEAN PLATELET VOLUME 9.1 fl (7.4-10.4); NEUTROPHILS % 80.3 % (40.0-76.0); PLATELET 125 x1000/uL (130-400); RED BLOOD CELL COUNT 2.86 mill/uL (4.2-5.4); RED CELL DISTRIBUTION WIDTH 28.1 % (11.6-14.6)
[2022-09-14] MEDS: APIXABAN 2.5 MG TABLET PO SCH ×2 (08:33→17:14)
[2022-09-14] MEDS: FOLIC ACID/VITAMIN B COMP W-C TABLET PO SCH (08:33)
[2022-09-14] MEDS: DILTIAZEM HCL 180MG CAPSULE ER 24HR PO SCH (08:33)
[2022-09-14] MEDS: FERROUS SULFATE 325MG TABLET PO SCH ×3 (08:33→17:14)
[2022-09-14] MEDS: LIDOCAINE 5% PATCH TOP SCH (08:34)
[2022-09-14] MEDS ORDERED: POTASSIUM CHLORIDE 20MEQ TABLET SR PO NR (09:00)
[2022-09-15] VITALS (7 sets, daily range): BP systolic 126–160; BP diastolic 68–89
[2022-09-15] MEDS: SILDENAFIL CITRATE 20MG TABLET PO SCH ×2 (06:19→14:35)
[2022-09-15] MEDS: CARVEDILOL 12.5MG TABLET PO SCH ×2 (06:19→17:06)
[2022-09-15] MEDS: FERROUS SULFATE 325MG TABLET PO SCH ×3 (09:28→17:06)
[2022-09-15] MEDS: APIXABAN 2.5 MG TABLET PO SCH ×2 (09:28→17:06)
[2022-09-15] MEDS: FOLIC ACID/VITAMIN B COMP W-C TABLET PO SCH (09:29)
[2022-09-15] MEDS: LIDOCAINE 5% PATCH TOP SCH (09:29)
[2022-09-15] MEDS: DILTIAZEM HCL 180MG CAPSULE ER 24HR PO SCH (09:29)
[2022-09-15 13:02] LABS: BASOPHILS % 0.9 % (0.0-2.0); EOSINOPHILS % 0.5 % (0.0-5.0); HEMATOCRIT. 22.8 % (36.0-48.0); HEMOGLOBIN. 7.3 g/dL (12.0-16.0); LYMPHOCYTES % 7.4 % (20.0-50.0); MEAN CORPUSCULAR HEMOGLOBIN 24.7 pg (28.0-32.0); MEAN CORPUSCULAR VOLUME 77.6 fL (81.0-99.0); MEAN PLATELET VOLUME 8.6 fl (7.4-10.4); MONOCYTES % 5.3 % (2.0-8.0); NEUTROPHILS % 85.9 % (40.0-76.0); PLATELET 149 x1000/uL (130-400); RED BLOOD CELL COUNT 2.94 mill/uL (4.2-5.4); RED CELL DISTRIBUTION WIDTH 28.4 % (11.6-14.6)
== END 2022-09-15 18:13 | DRG 682 ==
LOC: ER 10:15 → 3WST 14:04 → EDBEDREQ 14:06
PROVIDERS: ADMIT Internal Medicine Geriatric Medicine; ATTEND Internal Medicine Geriatric Medicine
PROC: 0T9030Z Drainage of Right Kidney with Drainage Device, Percutaneous Approach (ICD-10-PCS; principal; 2022-09-11)
PROC: 0T9430Z Drainage of Left Kidney Pelvis with Drainage Device, Percutaneous Approach (ICD-10-PCS; 2022-09-11)
PROC: 05HY33Z Insertion of Infusion Device into Upper Vein, Percutaneous Approach (ICD-10-PCS; 2022-09-13)
PROC: B54NZZA Ultrasonography of Left Upper Extremity Veins, Guidance (ICD-10-PCS; 2022-09-13)
DX: N17.9 Acute kidney failure, unspecified (principal); G93.41 Metabolic encephalopathy; E44.1 Mild protein-calorie malnutrition; N13.8 Other obstructive and reflux uropathy; E87.1 Hypo-osmolality and hyponatremia; I48.20 Chronic atrial fibrillation, unspecified; F02.82 Dementia in other diseases classified elsewhere, unspecified severity, with psychotic disturbance; I42.9 Cardiomyopathy, unspecified; I48.11 Longstanding persistent atrial fibrillation; C78.00 Secondary malignant neoplasm of unspecified lung; N13.30 Unspecified hydronephrosis; E11.9 Type 2 diabetes mellitus without complications; E78.00 Pure hypercholesterolemia, unspecified; D63.8 Anemia in other chronic diseases classified elsewhere; I11.0 Hypertensive heart disease with heart failure; Z20.822 Contact with and (suspected) exposure to COVID-19; E86.9 Volume depletion, unspecified; G30.9 Alzheimer's disease, unspecified; I08.1 Rheumatic disorders of both mitral and tricuspid valves; I25.10 Atherosclerotic heart disease of native coronary artery without angina pectoris; I16.0 Hypertensive urgency; I27.21 Secondary pulmonary arterial hypertension; N31.9 Neuromuscular dysfunction of bladder, unspecified; Z79.01 Long term (current) use of anticoagulants; Z79.4 Long term (current) use of insulin; Z85.51 Personal history of malignant neoplasm of bladder; Z86.73 Personal history of transient ischemic attack (TIA), and cerebral infarction without residual deficits; Z79.899 Other long term (current) drug therapy; Z87.440 Personal history of urinary (tract) infections; Z88.0 Allergy status to penicillin; Z91.041 Radiographic dye allergy status; Z91.148 Patient's other noncompliance with medication regimen for other reason; Z68.30 Body mass index [BMI] 30.0-30.9, adult
CPT/HCPCS: 36415; 36573; 36600; 50432; 71045; 72040; 74176; 76770; 80048; 80053; 82140; 82375; 82805; 82962; 83540; 83550; 83605; 84100; 84145; 84443; 84484; 85014; 85018; 85025; 86850; 86900; 87426; 93005; 93970; 97162; 97166; 97530; 99285; A6261; C1725; C1729; C1760; C1769; C1893; C9803; J1200; J1650; J1956; J3010; J3490; J7042; Q9967; A4315